=== PATIENT | female | born 1955 | race Caucasian/White ===

== ENCOUNTER 2020-05-22 10:38 | Outpatient (CLI) | payer MEDICARE, SELFPAY ==
--- NOTE | ~2020-05-22 | MM_ITS ---
EXAMINATION: MM screening [facility] BI w brandon HISTORY: Screening TECHNIQUE: Craniocaudal and mediolateral oblique 3-D tomosynthesis images were obtained and synthetic 2-D images were generated. CAD analysis was submitted and interpreted. COMPARISON: Comparison to multiple prior studies sequentially, with oldest reviewed study dated 03/2016. BREAST PARENCHYMAL COMPOSITION: There are scattered areas of fibroglandular density. FINDINGS: There post lumpectomy changes in the left breast, unchanged. There is no evidence of suspic ious mass, calcification, or architectural distortion to suggest malignancy in either breast. There h as been no suspicious interval change. IMPRESSION: 1. No mammographic evidence of malignancy. 2. Recommend routine screening mammography in one year. BI-RADS Category 2: Benign finding(s). Reviewed, dictated and finalized at location A.
== END 2020-05-22 10:39 | disposition home or self-care (01) ==
LOC: ANHIMG 10:45
PROVIDERS: PCP Obstetrics & Gynecology; Visit Provider Nurse Practitioner Women's Health
DX: Z12.31 Encounter for screening mammogram for malignant neoplasm of breast (principal)
CPT/HCPCS: 77063; 77067

== ENCOUNTER 2020-09-02 09:46 | Emergency (ER) | payer MEDICARE, SELFPAY ==
--- NOTE | ~2020-09-02 | XR_ITS ---
EXAMINATION: XR chest 2V DATE: 09/02/2020 10:18 INDICATION: Cough TECHNIQUE: PA and lateral views of the chest are obtained. COMPARISON: None available FINDINGS: The lungs are free of acute opacities. There is no pleural effusion or pneumothorax. The ca rdiomediastinal silhouette is normal. There is moderate thoracic spondylosis. A surgical clip in the left axilla is consistent with treatment for prior left breast cancer. IMPRESSION: 1. No acute cardiopulmonary abnormality. Reviewed, dictated and finalized at location A. SPORT INSTRUCTOR
[2020-09-02 10:09] VITALS: BP 165/77; PULSE 69; RESP 14; TEMP 36.6; O2SAT 100
--- NOTE | 2020-09-02 10:23 | ED.GENADULT ---
HPI - General Adult General Chief complaint: Upper Respiratory Infection Stated complaint: chills cough fatigue Source: patient Mode of arrival: ambulatory Limitations: no limitations History of Present Illness HPI narrative: Patient presents with concerns about recent exposure. She states her daughter and grandchildren tested positive for Covid three days ago. She was last in contact with them two days prior to their positive Covid tests. She experienced chills, headache, diarrhea. All symptoms have resolved as of today. She currently has a mild sore throat and nonproductive cough but denies any shortness of breath, chest pain, fever, body aches. She does not smoke. No additional complaints or concerns. Related Data Allergies Allergy/AdvReac Type Severity Reaction Status Date / Time No Known Allergies Allergy Verified 09/02/20 09:54 Review of Systems Review of Systems: Narrative: CONSTITUTIONAL: Reports recent chills, now resolved. Denies any fever or sweating. EYES: Denies visual changes, redness, or discharge. ENT: Reports sore throat. Denies rhinorrhea, congestion, or otalgia. CARDIOVASCULAR: Denies chest pain, palpitations, or edema. RESPIRATORY: Reports mild nonproductive cough. Denies shortness of breath GASTROINTESTINAL: Reports diarrhea yesterday, now resolved. Denies abdominal pain, nausea, vomiting GENITOURINARY: Denies dysuria or hematuria. SKIN: Denies rash or itching. MUSCULOSKELETAL: Denies back pain, joint pain, or myalgia. NEUROLOGIC: Reports recent headache, now resolved. Denies numbness, dizziness, or weakness. PSYCHIATRIC: Denies anxiety or depression. [facility] Past Medical History Medical History History of left breast cancer Hypothyroidism (acquired) Surgical History Surgical History History of lumpectomy of left breast Status post right hip replacement Family History Family History Father Patient's father is Heart disease Lung cancer Sibling Patient's sister is in good health Patient's brother is in good health Mother Cerebrovascular accident, Onset Age: 80 Hypertension Social History Social History Social History: Smoking status: Never smoker Second hand tobacco smoke exposure: No Alcohol intake: never Substance use: never Substance use type: does not use Gender identity (if verbalized by the patient): Female Exam Narrative: Exam Narrative: GENERAL: Well-appearing, well-nourished, and in no acute distress. HEAD: Normocephalic, atraumatic. EYES: PERRLA and EOMI. ENT: Nares clear, no rhinorrhea or epistaxis. Mucous membranes moist. Oropharynx without tonsillar hypertrophy exudate or other lesions. Bilateral TMs pearly graham nonbulging NECK: Supple. No adenopathy or masses. No carotid bruits or JVD CHEST: Clear to auscultation. No respiratory distress. No wheezes rales or rhonchi HEART: Regular rate and rhythm. No murmur heard. Normal peripheral pulses. ABDOMEN: Soft, nontender, nondistended, normal active bowel sounds. EXTREMITIES: Normal range of motion. No edema. SKIN: Warm, dry, no rash. NEURO: No focal deficits. Alert and oriented x3. PSYCH: Normal mood and affect. Course Course Emergency Course: This is a 64-year-old female that presents with recent exposure to Covid. Rapid Covid was negative. Chest x-ray was negative. I ordered strep and influenza, which she declined. Her saturations are 100% on room air and she is nontoxic-appearing. Likely acute viral syndrome. Will send PCR Covid testing. Advised to go to the hospital for shortness of breath or any declining condition. Otherwise follow-up this week with primary care provider. Patient does have elevated blood pr
[2020-09-03 18:27] LABS: SARS-CoV-2 RNA PCR Positive
== END 2020-09-02 10:45 | disposition home or self-care (01) ==
PROVIDERS: Emergency Provider Nurse Practitioner; PCP Family Medicine
DX: B34.9 Viral infection, unspecified (principal); R03.0 Elevated blood-pressure reading, without diagnosis of hypertension; U07.1 COVID-19; E03.9 Hypothyroidism, unspecified; Z85.3 Personal history of malignant neoplasm of breast; Z96.641 Presence of right artificial hip joint
CPT/HCPCS: 71046; 87426; 99213; C9803; G0463; U0003; U0005

== ENCOUNTER 2021-06-04 09:43 | Outpatient (CLI) | payer MEDICARE, SELFPAY ==
--- NOTE | ~2021-06-04 | MM_ITS ---
EXAMINATION: MM screening [facility] w brandon HISTORY: Screening mammogram TECHNIQUE: Craniocaudal and mediolateral oblique 3-D tomosynthesis images were obtained and synthetic 2-D images were generated. CAD analysis was submitted and interpreted. COMPARISON: 05/22/2020, 05/16/2019, 05/10/2018 bilateral digital screening mammogram examinations BREAST PARENCHYMAL COMPOSITION: The breasts are heterogeneously dense, which may obscure small masses . FINDINGS: Stable asymmetry in volume loss of the left breast consistent with history of left partial mastectomy for breast cancer. Scattered bilateral benign calcifications. There is no evidence of suspicious mass, calcification, or architectural distortion to suggest malignancy in either breast. There has been no suspicious interv al change. IMPRESSION: 1. Status post left partial mastectomy for breast cancer. No mammographic evidence of malignancy. 2. Recommend routine screening mammography in one year. BI-RADS Category 2: Benign finding(s). Reviewed, dictated and finalized at location A. IMPRESSION: 1. Status post left partial mastectomy for breast cancer. No mammographic evide nce of malignancy. 2. Recommend routine screening mammography in one year. BI-RADS Category 2: Benign finding(s).
== END 2021-06-04 09:44 | disposition home or self-care (01) ==
LOC: ANHIMG 09:47
PROVIDERS: PCP Family Medicine; Visit Provider Nurse Practitioner Women's Health
DX: Z12.31 Encounter for screening mammogram for malignant neoplasm of breast (principal)
CPT/HCPCS: 77063; 77067

== ENCOUNTER 2021-10-17 01:19 | Day surgery (SDC) | payer MEDICARE, SELFPAY ==
[2021-10-10 09:36] VITALS: BMI 24.0
--- NOTE | 2021-10-16 11:57 | P.PNAN_ITS ---
Anes - Initial Pre Proc Eval Procedure: Operation Date: 10/17/21 08:30 Proposed Procedures p Esophagogastroduodenoscopy & Screening Colonoscopy - Guilherme Lui MD Date/Time: 10/16/21 11:57 Surgeon: Guilherme Lui MD Pre Op Diagnosis: neoplasm screening, GERD, nausea Patient Data Age: 66 Gender: F Height: 1.63 m Weight: 63.5 kg Allergies Allergy/AdvReac Type Severity Reaction Status Date / Time No Known Allergies Allergy Verified 10/17/21 07:41 Home Medications Medication Instructions Recorded Confirmed Type cholecalciferol (vitamin D3) 25 25 mcg PO DAILY 06/24/21 10/17/21 History mcg (1,000 unit) capsule multivitamin 1 tablet PO DAILY 06/24/21 10/17/21 History calcium citrate-vitamin D3 1 cap PO DAILY 10/10/21 10/17/21 History levothyroxine [Euthyrox] 75 mcg PO DAILY 10/10/21 10/17/21 History Patient hx anesthesia problems: none Family hx anesthesia problems: none Results Review: All pre-operative results and documents have been reviewed as part of the pre-operative evaluation. [facility] Past Medical History Medical History (Updated 06/24/21 @ 14:09 by Homa Russ, KAREN) History of left breast cancer Hypothyroidism (acquired) Postmenopausal Surgical History Surgical History History of lumpectomy of left breast Status post right hip replacement Family History Family History Father Patient's father is Heart disease Lung cancer Sibling Patient's sister is in good health Patient's brother is in good health Mother Cerebrovascular accident, Onset Age: 80 Hypertension Social History Social History (Updated 06/24/21 @ 13:25 by Lorna Calderon) Social History: Smoking status: Never smoker Second hand tobacco smoke exposure: No Alcohol intake: never Substance use: never Substance use type: does not use Living arrangements: with family Gender identity (if verbalized by the patient): Female Sexual Orientation (if Verbalized by the Patient): Straight or Heterosexual Spiritual care concerns: No Anes - Eval Final PreProcedure Day of Procedure 10/16/21 11:57 Patient weight: normal Heart: regular rate and rhythm Lungs: clear to auscultation and normal air movement Airway: Mallampati scale class II Neurological: alert and oriented Last oral intake: >/= 8 hours ASA classification: II Emergent: no Anesthetic plan: proceed Anesthesia type and monitoring: general GIVS and standard monitoring Results Review: All pre-operative results and documents have been reviewed as part of the pre-operative evaluation. Informed Consent: The patient's anesthetic plan and its attendant risks and benefits were discussed with the patient/family/POA. Questions were solicited and answers provided to the satisfaction of the patient/family/POA.
[2021-10-17 07:30] VITALS: BP 136/80; PULSE 88; RESP 18; TEMP 37.4; O2SAT 100; BMI 24.2
[2021-10-17] MEDS: LACTATED RINGERS 1,000 ML 150 ML IV CONT (07:57)
--- NOTE | 2021-10-17 08:15 | WPDGICN ---
Assessment and Plan Assessment and plan (1) Nausea & vomiting: Code(s): R11.2 - Nausea with vomiting, unspecified Status: Acute Assessment and Plan: Patient with episode of prolonged nausea vomiting. Distant history of peptic ulcer disease. Currently asymptomatic. Plan is for EGD to assess and exclude recurrent ulcers. Further recommendations may be given after endoscopy. Suspect she may have had a viral episode and fall. (2) Encounter for screening colonoscopy: Code(s): Z12.11 - Encounter for screening for malignant neoplasm of colon Status: Acute Assessment and Plan: Screening colonoscopy advised. Patient appears to be at average risk for colon polyps. GI Consult Note Consult date/time: 10/17/21 08:15 HPI: Waldo Ham is a 66 year old female Presents for GI endoscopy. She states her weight appetite bowel movements are normal. She presents for screening colonoscopy. She has no pain. No bleeding. Family history is noncontributory. Patient reports a distant history of gastric ulcerations presumed to be from nonsteroidal anti-inflammatory agents. In the fall of 2020 had a prolonged episode of vomiting for this reason EGD is requested. She states she no longer has epigastric pain takes no specific medications. She states intermittently will have vague upper abdominal discomfort that resolved spontaneously after a few antacids. She has no dysphagia no weight loss. EGD is requested by primary care service. Because of a prolonged vomiting episode. Review of Systems Review of Systems: All systems reviewed & are unremarkable except as noted in HPI and below PMFSH Past Medical History Medical History (Updated 10/17/21 @ 08:16 by Guilherme Lui MD) History of left breast cancer Hypothyroidism (acquired) Postmenopausal Surgical History Surgical History History of lumpectomy of left breast Status post right hip replacement Family History Family History Father Patient's father is Heart disease Lung cancer Sibling Patient's sister is in good health Patient's brother is in good health Mother Cerebrovascular accident, Onset Age: 80 Hypertension Social History Social History (Updated 06/24/21 @ 13:25 by Lorna Calderon) Social History: Smoking status: Never smoker Second hand tobacco smoke exposure: No Alcohol intake: never Substance use: never Substance use type: does not use Living arrangements: with family Gender identity (if verbalized by the patient): Female Sexual Orientation (if Verbalized by the Patient): Straight or Heterosexual Spiritual care concerns: No Meds Home Medications and Allergies Home Medications Medication Instructions Recorded Confirmed Type cholecalciferol (vitamin D3) 25 25 mcg PO DAILY 06/24/21 10/17/21 History mcg (1,000 unit) capsule multivitamin 1 tablet PO DAILY 06/24/21 10/17/21 History calcium citrate-vitamin D3 1 cap PO DAILY 10/10/21 10/17/21 History levothyroxine [Euthyrox] 75 mcg PO DAILY 10/10/21 10/17/21 History Allergies Allergy/AdvReac Type Severity Reaction Status Date / Time No Known Allergies Allergy Verified 10/17/21 07:41 Vital Signs Vital Signs - 24 hr 10/17/21 07:30 Temperature 99.4 F Pulse Rate 88 Respiratory Rate 18 Blood Pressure 136/80 Pulse Oximetry 100 Exam Narrative: Physical exam reveals patient to be alert. Vital signs stable. HEENT exam is unremarkable. Patient is anicteric. Lungs are clear to auscultation and percussion. Heart is without murmur or extra sounds. Abdominal exam bowel sounds are present soft nontender with no organomegaly. Digital external rectal exam is normal.
[2021-10-17] MEDS: BENZOCAINE (*SP) 60 ML SPRAY CAN (HURRICAINE) 1 SPRAY MUCOUS MEM (08:34)
--- NOTE | 2021-10-17 08:59 | SUR.OPER ---
EGD start 835 end 837, COLON start 842 end 857.
[2021-10-17 09:05] VITALS: BP 105/59; PULSE 79; RESP 23; O2SAT 99
[2021-10-17 09:15] VITALS: BP 115/71; PULSE 67; RESP 25; O2SAT 100
[2021-10-17 09:25] VITALS: BP 137/72; PULSE 62; RESP 21; O2SAT 100
== END 2021-10-17 09:34 | disposition home or self-care (01) ==
PROVIDERS: PCP Family Medicine; Visit Provider Internal Medicine Gastroenterology
PROC: 0DJ08ZZ Inspection of Upper Intestinal Tract, Via Natural or Artificial Opening Endoscopic (ICD-10-PCS; CPT 43235; principal; 2021-10-17 08:30)
DX: Z12.11 Encounter for screening for malignant neoplasm of colon (principal); R11.2 Nausea with vomiting, unspecified; E03.9 Hypothyroidism, unspecified; Z85.3 Personal history of malignant neoplasm of breast
CPT/HCPCS: 43239; G0121; 87081; J2704; J7120

== ENCOUNTER 2021-11-25 12:58 | Outpatient (CLI) | payer MEDICARE, SELFPAY ==
--- NOTE | ~2021-11-25 | DEXA_ITS ---
Bone Density Report Name: AMY DIAZ Age: 66 Sex: Female Ethnicity: White Date of : 1955 Indication: postmenopausal; screening for osteoporosis; cancer; Referring Provider: MEHDI, MYRON Holm Study: Bone densitometry was performed. Exam Date: November 25, 2021 Accession number: [id number] Bone Density: Region BMD T-score Z-score Classification AP Spine(L1-L4) 1.061 0.1 2.1 Normal Femoral Neck (Left) 0.893 0.4 2.1 Normal Total Hip (Left) 0.932 -0.1 1.3 Normal World Health Organization criteria for BMD impression classify patients as: Normal (T-score at or above -1.0), Osteopenia (T-score between -1.0 and -2.5), or Osteoporosis (T-score at or below -2.5). 10-year Fracture Risk: FRAX not reported because: All T-scores for Spine Total, Hip Total, Femoral Neck at or above -1.0 Previous Exams: Region Exam Age BMD T-score BMD Change BMD Change Date g/cm2 vs Baseline vs Previous AP Spine(L1-L4) 11/25/2021 66 1.061 0.1 0.024(2.3%)* 0.024(2.3%)* 05/10/2018 62 1.037 -0.1 Total Hip(Left) 11/25/2021 66 0.932 -0.1 0.027(3.0%) 0.027(3.0%) 05/10/2018 62 0.905 -0.3 *Denotes significance at 95% confidence level, LSC for AP Spine = 0.022 g/cm2, LSC for Total Hip = 0.027 g/cm2 Clinical Information Provided by Patient: Has used the following medications: Vitamin D Has the following medical conditions: Cancer Patient maximum height was 64 Menopause Age: 46 Drinks caffeinated beverages Onset of menses at age 12 Number of children 3 Impression: The patient has normal bone mass. No significant bone loss was observed. Discussion: BONE DENSITY IS ABOVE THE MINIMUM DESIRABLE LEVEL AT ALL SKELETAL SITES TESTED. This patient?s bone mineral density is above the minimum desirable level (T-score -1.0 or better) at all sites measured. The patient should follow a healthful lifestyle (good nutrition with adequate calcium and vitamin D, and appropriate weight-bearing exercise). Follow-Up: Consider repeating this study in 5 years or sooner if there is some new clinical indication. Reported by: MAHESH on 11/25/2021 4:25:00 PM. Reviewed, dictated and finalized at location Nallely RAMIREZ
== END 2021-11-25 12:59 | disposition home or self-care (01) ==
LOC: ANHIMG 13:04
PROVIDERS: PCP Family Medicine
DX: Z78.0 Asymptomatic menopausal state (principal)
CPT/HCPCS: 77080

== ENCOUNTER 2022-07-29 10:44 | Outpatient (CLI) | payer MEDICARE, SELFPAY ==
--- NOTE | ~2022-07-29 | MM_ITS ---
EXAMINATION: MM screening [facility] BI w brandon HISTORY: Screening TECHNIQUE: Craniocaudal and mediolateral oblique 3-D tomosynthesis images were obtained and synthetic 2-D images were generated. CAD analysis was submitted and interpreted. COMPARISON: Comparison to multiple prior studies sequentially, with oldest reviewed study dated 03/2016. BREAST PARENCHYMAL COMPOSITION: Breast composed of scattered areas of fibroglandular density FINDINGS: There is no evidence of suspicious mass, calcification, or architectural distortion to sugg est malignancy in either breast. There has been no suspicious interval change. IMPRESSION: 1. No mammographic evidence of malignancy. 2. Recommend routine screening mammography in one year. BI-RADS Category 1: Negative Reviewed, dictated and finalized at location A. N CLEANER
== END 2022-07-29 10:45 | disposition home or self-care (01) ==
PROVIDERS: PCP Family Medicine; Visit Provider Nurse Practitioner Women's Health
DX: Z12.31 Encounter for screening mammogram for malignant neoplasm of breast (principal)
CPT/HCPCS: 77063; 77067

== ENCOUNTER 2022-08-04 09:10 | Emergency (ER) | payer MEDICARE, SELFPAY ==
--- NOTE | ~2022-08-04 | XR_ITS ---
EXAMINATION: XR chest 2V DATE: 08/04/2022 10:44 INDICATION: 5 days of cough, shortness of breath and left-sided lung pain TECHNIQUE: frontal and lateral views of the chest were obtained. COMPARISON: Chest radiograph dated 09/02/2020 FINDINGS: New focal airspace opacity in the lingula along side the apex of the heart. No other airspace opaciti es, pulmonary edema, pleural effusion or pneumothorax. The cardiomediastinal silhouette is normal. Mi ld thoracic kyphosis with moderate spondylosis and chronic minimal anterior wedging of a few mid thor acic vertebral bodies. IMPRESSION: 1. New focal small lingular airspace opacity which could represent atelectasis or pneumonia. Reviewed, dictated and finalized at location A. SYSTEM ADMINISTRATOR
[2022-08-04 09:16] VITALS: BP 131/60; PULSE 94; RESP 16; TEMP 36.6; O2SAT 97
--- NOTE | 2022-08-04 10:29 | ED.URI ---
HPI - URI/Sore Throat General Chief Complaint: Upper Respiratory Infection Stated Complaint: left lung burning Source: patient, RN notes reviewed and old records reviewed Mode of arrival: ambulatory Limitations: no limitations History of Present Illness HPI Narrative: 66-year-old female presents to [facility] with complaints of 5 day duration cough 3 days of nasal congestion and also low-grade fever with some chills, Patient states her left lung hurts feels burning denies shortness breath with cough, does feel increase discomfort with cough, movement and deep breathing. MD elicited complaint: cough, rhinorrhea, nasal congestion and other (left chest discomfort with cough and movement) Pertinent past history: other (breast cancer left lumpectomy chemo and radiation) Onset (ago): day(s) (5) Pain scale (0-10): 5 Able to tolerate fluids by mouth: Yes Treatments prior to arrival: acetaminophen, ibuprofen and other (robitussin cough syrup) Related Data Home Medications Medication Instructions Recorded Confirmed cholecalciferol (vitamin D3) 25 25 mcg PO DAILY 06/24/21 10/17/21 mcg (1,000 unit) capsule multivitamin 1 tablet PO DAILY 06/24/21 10/17/21 calcium citrate-vitamin D3 1 cap PO DAILY 10/10/21 10/17/21 Allergies Allergy/AdvReac Type Severity Reaction Status Date / Time No Known Allergies Allergy Verified 02/04/22 10:48 Review of Systems Review of Systems: CONSTITUTIONAL: Reports malaise, chills, sweats, or fever. EYES: Denies visual changes, redness, or discharge. ENT: Reports rhinorrhea, congestion, sinus pain, no otalgia and sore throat. CARDIOVASCULAR: left chest discomfort with cough movement and deep breathing,no palpitations, or edema. RESPIRATORY: Reports cough.? Denies dyspnea. GASTROINTESTINAL: Denies abdominal pain, nausea, vomiting, diarrhea SKIN: Denies rash or itching. MUSCULOSKELETAL: Denies myalgia. NEUROLOGIC: Denies headache. All systems reviewed & are unremarkable except as noted in HPI and below PMFSH Past Medical History Medical History History of left breast cancer left lumpectomy chemotherapy and radiation Hypothyroidism (acquired) Postmenopausal Surgical History Surgical History History of lumpectomy of left breast Status post right hip replacement Family History Family History Father Patient's father is Heart disease Lung cancer Sibling Patient's sister is in good health Patient's brother is in good health Mother Cerebrovascular accident, Onset Age: 80 Hypertension Social History Social History Social History: Smoking status: Never smoker Second hand tobacco smoke exposure: No Alcohol intake: never Substance use: never Substance use type: does not use Gender identity (if verbalized by the patient): Female Sexual Orientation (if Verbalized by the Patient): Straight or Heterosexual Spiritual care concerns: No Comments At time of signature, agree with nursing past medical, surgical, social and family history. There is no relevant family history pertinent to the presenting complaint Exam Narrative: GENERAL: Well-appearing, well-nourished, and in no acute distress. HEAD: Normocephalic EYES: PERRLA, conjunctivae clear ENT: Nares clear, turbinates edematous and erythematous, clear discharge. Mucous membranes moist. TM pearly grhaam with dull light reflex bilaterally; no tragal tenderness. Oropharynx erythematous without lesions. Tonsils not enlarged and without exudate, no drooling, no hoarseness, no trismus, uvula midline.some post nasal drainage NECK: Supple. No lymphadenopathy CHEST: Clear to auscultation with some upper left lung coarseness noted, breath sounds equal. No
== END 2022-08-04 12:06 | disposition home or self-care (01) ==
PROVIDERS: Emergency Provider Registered Nurse; PCP Family Medicine
DX: J18.1 Lobar pneumonia, unspecified organism (principal); E03.9 Hypothyroidism, unspecified; Z85.3 Personal history of malignant neoplasm of breast; Z96.641 Presence of right artificial hip joint
CPT/HCPCS: 71046; 99213; G0463

== ENCOUNTER 2023-05-03 10:16 | Emergency (ER) | payer MEDICARE, SELFPAY ==
[2023-05-03 10:20] VITALS: BP 143/73; PULSE 77; RESP 20; TEMP 37.4; O2SAT 97
--- NOTE | 2023-05-03 10:32 | ED.URI ---
HPI - URI/Sore Throat General Chief Complaint: Upper Respiratory Infection Stated Complaint: cough History of Present Illness HPI Narrative: PATIENT PRESENTS WITH A 2 WEEK HISTORY OF A COUGH. NO SHORTNESS OF BREATH NO CHEST PAIN. PATIENT STATES HER COUGH IS PRODUCTIVE AT TIMES NO FEVERS. PATIENT IS NOT TAKING ANYTHING [id number] FOR HER SYMPTOMS AND STATES SHE HAS A NORMALLY HEALTHY INDIVIDUAL WITH GOOD P.O. INTAKE Related Data Home Medications Medication Instructions Recorded Confirmed cholecalciferol (vitamin D3) 25 25 mcg PO DAILY 06/24/21 12/11/22 mcg (1,000 unit) capsule multivitamin 1 tablet PO DAILY 06/24/21 12/11/22 calcium citrate-vitamin D3 1 cap PO DAILY 10/10/21 12/11/22 Allergies Allergy/AdvReac Type Severity Reaction Status Date / Time No Known Allergies Allergy Verified 12/11/22 10:43 Review of Systems Review of Systems: CONSTITUTIONAL: DENIES CHILLS, OR SWEATS. REPORTS FEVER AND GENERALIZED BODY ACHES EYES: DENIES VISUAL CHANGES, REDNESS, OR DISCHARGE. ENT: DENIES OTALGIA. REPORTS NASAL CONGESTION RUNNY NOSE AND SORE THROAT CARDIOVASCULAR: DENIES CHEST PAIN, PALPITATIONS, OR EDEMA. RESPIRATORY: DENIES DYSPNEA. REPORTS OCCASIONAL COUGH GASTROINTESTINAL: DENIES ABDOMINAL PAIN, NAUSEA, VOMITING, OR DIARRHEA. GENITOURINARY: DENIES DYSURIA OR HEMATURIA. SKIN: DENIES RASH OR ITCHING. MUSCULOSKELETAL: DENIES BACK PAIN, JOINT PAIN, OR MYALGIA. REPORTS GENERALIZED BODY ACHES NEUROLOGIC: DENIES HEADACHE, NUMBNESS, OR WEAKNESS. PSYCHIATRIC: DENIES ANXIETY OR DEPRESSION. [facility] Past Medical History Medical History History of left breast cancer left lumpectomy chemotherapy and radiation Hypothyroidism (acquired) Postmenopausal Surgical History Surgical History History of lumpectomy of left breast Status post right hip replacement Family History Family History Father Patient's father is Heart disease Lung cancer Sibling Patient's sister is in good health Patient's brother is in good health Mother Cerebrovascular accident, Onset Age: 80 Hypertension Social History Social History (Updated 12/11/22 @ 10:44 by Lorna Rivero Social History: Smoking status: Never smoker Second hand tobacco smoke exposure: No Alcohol intake: never Substance use: never Substance use type: does not use Lack of Transportation: No Lack of Food: Never True Current Housing: I Have Housing Concerned About Future Housing: No Difficulty Paying Gas/Electric Bills: No Difficulty Paying for Meds: No Currently Unemployed: YES Education: Decline to Answer Difficulty w/ Childcare or Family Care: No Living arrangements: with family Occupation/Education: retired Gender identity (if verbalized by the patient): Female Sexual Orientation (if Verbalized by the Patient): Straight or Heterosexual Spiritual care concerns: No Comments AT TIME OF SIGNATURE, AGREE WITH NURSING PAST MEDICAL, SURGICAL, SOCIAL AND FAMILY HISTORY. THERE IS NO RELEVANT FAMILY HISTORY PERTINENT TO THE PRESENTING COMPLAINT Exam Narrative: THE PATIENT IS A WELL-DEVELOPED, WELL-NOURISHED IN NO ACUTE DISTRESS. SKIN: SKIN IS WARM AND DRY WITHOUT ERYTHEMA, SWELLING OR EXUDATE. THERE IS GOOD TURGOR. NO TENTING. HEAD: ATRAUMATIC. NORMOCEPHALIC. NO TEMPORAL OR SCALP TENDERNESS. EYES: MOIST AND BRIGHT. SCLERA AND CONJUNCTIVAE NORMAL. NO DISCHARGE. PERRLA. EXTRAOCULAR MOTIONS INTACT. GROSS VISUAL ACUITY INTACT. EARS: PINNA IS NORMAL SHAPE AND CONTOUR. CLEAR EXTERNAL AUDITORY CANALS. TM PEARLY CASIANO WITH GOOD CONE OF LIGHT, NO ERYTHEMA OR SUPPURATION. BILATERAL CERUMEN NOTED NO GROSS HEARING DEFICIT. NOSE: PINK, MOIST MUCOSA WITH GOOD AIR MOVEMENT. CLEAR RHINORRHEA WITHOUT NASAL FLARING. SEPTUM MIDLINE. MOUT
== END 2023-05-03 10:41 | disposition home or self-care (01) ==
PROVIDERS: Emergency Provider Nurse Practitioner Family; PCP Family Medicine
DX: J06.9 Acute upper respiratory infection, unspecified (principal); J40 Bronchitis, not specified as acute or chronic; E03.9 Hypothyroidism, unspecified; Z85.3 Personal history of malignant neoplasm of breast; Z90.12 Acquired absence of left breast and nipple; Z96.641 Presence of right artificial hip joint
CPT/HCPCS: 99213; G0463

== ENCOUNTER 2023-10-19 13:45 | Outpatient (CLI) | payer MEDICARE, SELFPAY ==
--- NOTE | ~2023-10-19 | MM_ITS ---
EXAMINATION: MM screening della BI w brandon HISTORY: Screening mammogram TECHNIQUE: Craniocaudal and mediolateral oblique 3-D tomosynthesis images were obtained and synthetic 2-D images were generated. CAD analysis was submitted and interpreted. COMPARISON: 07/29/2022, 06/04/2021, 05/22/2020 bilateral screening mammogram examinations BREAST PARENCHYMAL COMPOSITION: The breasts are heterogeneously dense, which may obscure small masses . FINDINGS: There are multiple scattered bilateral benign calcifications. There is no evidence of suspi cious mass, calcification, or architectural distortion to suggest malignancy in either breast. There has been no suspicious interval change. IMPRESSION: 1. No mammographic evidence of malignancy. 2. Recommend routine screening mammography in one year. BI-RADS Category 2: Benign finding(s). Reviewed, dictated and finalized at location A.
== END 2023-10-19 13:46 | disposition home or self-care (01) ==
LOC: ANHIMG 13:48
PROVIDERS: PCP Family Medicine; Visit Provider Nurse Practitioner Women's Health
DX: Z12.31 Encounter for screening mammogram for malignant neoplasm of breast (principal)
CPT/HCPCS: 77063; 77067

== ENCOUNTER 2024-03-29 14:01 | Outpatient (CLI) | payer MEDICARE, SELFPAY ==
--- NOTE | ~2024-03-29 | XR_ITS ---
3 VIEWS LUMBAR SPINE Ordering provider: Eryn Clark MD History: . M54.10 - Radiculopathy, site unspecified PAIN S1 X 1 MONTH . Comparison: None. FINDINGS: VERTEBRAL BODIES: No visible fracture or subluxation. Degenerative changes of the spine. DISK SPACES: Narrowing of the disc L4-L5 and L5-S1. Multilevel facet joint disease. SOFT TISSUES: Normal. Right hip arthroplasty. Left sacroiliitis. IMPRESSION: No acute osseous abnormality lumbar spine. Multilevel degenerative disc disease. Left sacroiliitis. Reviewed, dictated and finalized at location A.
== END 2024-03-29 14:02 | disposition home or self-care (01) ==
PROVIDERS: PCP Family Medicine; Visit Provider Family Medicine
DX: N20.1 Calculus of ureter (principal); M53.3 Sacrococcygeal disorders, not elsewhere classified; M51.36 Other intervertebral disc degeneration, lumbar region
CPT/HCPCS: 72110

== ENCOUNTER 2024-05-20 10:30 | Outpatient (CLI) | payer MEDICARE, SELFPAY ==
--- NOTE | ~2024-05-20 | XR_ITS ---
CHEST RADIOGRAPH, PA AND LATERAL CLINICAL HISTORY: R06.09 - Other forms of dyspnea, fever, cough, HTN . COMPARISON: 08/04/2022 TECHNIQUE: PA and lateral views of the chest. FINDINGS The cardiomediastinal silhouette is unremarkable. The lungs are clear. Visualized osseous structures and soft tissues are unremarkable. IMPRESSION: No focal infiltrate or effusion. Reviewed, dictated and finalized at location A.
== END 2024-05-20 10:31 | disposition home or self-care (01) ==
LOC: ANHIMG 10:33
PROVIDERS: PCP Family Medicine; Visit Provider Student in an Organized Health Care Education/Training Program
DX: R06.09 Other forms of dyspnea (principal)
CPT/HCPCS: 71046

== ENCOUNTER 2024-06-09 09:33 | Outpatient (CLI) | payer MEDICARE, SELFPAY ==
--- NOTE | 2024-06-09 09:39 | EST_ITS ---
Patient Info Name: Waldo Ham Age: 68 years : 1955 Gender: Female Ht: 64 in Wt: 145 lbs BSA: 1.73 m2 HR: 72 bpm BP: 142 / 82 mmHg Exam Date: 06/09/2024 9:58 AM Exam Location: [facility] Lab Patient Status: Outpatient Admit Date: 06/09/2024 Staff Ordering Physician: Alexa Sahu PA-C Attending Provider: Alexa Sahu PA-C Exercise Technologist: Lyndsey Loredo RDCS Exercise Physician: Kendall Crawford DO Exam Type: CA stress test treadmill Study Info A treadmill exercise stress test was performed. Summary 1. 1. Negative Arian exercise stress test for ischemic ST changes by ECG criteria. 2. 2. Good functional capacity, achieving 6.5 METs of workload. 3. 3. Baseline hypertension. 4. 4. Appropriate HR response to exercise. 5. 5. Appropriate HR recovery at 1 minute post exercise. 6. 6. No imaging with stress testing. 7. 7. Patient informed of the above results. Protocol: Arian Stress ECG Details Stage: REST Duration (min): 5 min : 58 sec Speed (mph): 0.0 Grade (%): 0 HR (bpm): 63 SBP (mmHg): 142 DBP (mmHg): 82 METS: --- Stage: REST Duration (min): 20 min : 21 sec Speed (mph): 0.0 Grade (%): 0 HR (bpm): 81 SBP (mmHg): 142 DBP (mmHg): 82 METS: --- Stage: STAGE 1 Duration (min): 1 min : 0 sec Speed (mph): 1.7 Grade (%): 10 HR (bpm): 111 SBP (mmHg): 142 DBP (mmHg): 82 METS: --- Stage: STAGE 1 Duration (min): 2 min : 0 sec Speed (mph): 1.7 Grade (%): 10 HR (bpm): 127 SBP (mmHg): 142 DBP (mmHg): 82 METS: --- Stage: STAGE 1 Duration (min): 3 min : 0 sec Speed (mph): 1.7 Grade (%): 10 HR (bpm): 134 SBP (mmHg): 180 DBP (mmHg): 71 METS: --- Stage: STAGE 2 Duration (min): 1 min : 0 sec Speed (mph): 2.5 Grade (%): 12 HR (bpm): 132 SBP (mmHg): 180 DBP (mmHg): 71 METS: --- Stage: STAGE 2 Duration (min): 1 min : 0 sec Speed (mph): 2.5 Grade (%): 12 HR (bpm): 132 SBP (mmHg): 180 DBP (mmHg): 71 METS: --- Stage: RECOVERY Duration (min): 0 min : 59 sec Speed (mph): 0.0 Grade (%): 0 HR (bpm): 104 SBP (mmHg): 170 DBP (mmHg): 79 METS: --- Stage: RECOVERY Duration (min): 1 min : 59 sec Speed (mph): 0.0 Grade (%): 0 HR (bpm): 87 SBP (mmHg): 170 DBP (mmHg): 79 METS: --- Stage: RECOVERY Duration (min): 2 min : 59 sec Speed (mph): 0.0 Grade (%): 0 HR (bpm): 75 SBP (mmHg): 150 DBP (mmHg): 83 METS: --- Stage: RECOVERY Duration (min): 3 min : 4 sec Speed (mph): 0.0 Grade (%): 0 HR (bpm): 76 SBP (mmHg): 150 DBP (mmHg): 83 METS: --- Rest HR: 81 bpm Peak HR: 137 bpm Rest Sys BP: 142 mmHg Peak Sys BP: 180 mmHg Max Pred HR: 150 bpm % Max Pred HR: 91 % Target HR: 128 bpm Max RPP: 24,660 bpm*mmHg Joya Score: 1 Termination Reason: Reached target heart rate or workload Cardiac Symptoms: Shortness of breath Max ST Seg Deviation: 0.70 mm Total Time: 4 min : 0 sec Rest Baumann BP: 82 mmHg Peak Baumann BP: 71 mmHg Angina Score: None Total METS: 6.5 Resting ECG Sinus rhythm. Stress ECG No ST changes. Arrhythmias None. Report Signatures
== END 2024-06-09 09:34 | disposition home or self-care (01) ==
LOC: ANHCARD 09:33
PROVIDERS: PCP Family Medicine; Visit Provider Student in an Organized Health Care Education/Training Program
DX: R06.09 Other forms of dyspnea (principal)
CPT/HCPCS: 93017

== ENCOUNTER 2024-11-07 13:50 | Outpatient (CLI) | payer MEDICARE, SELFPAY ==
--- NOTE | ~2024-11-07 | MM_ITS ---
EXAMINATION: MM screening [facility] BI w brandon HISTORY: Screening mammogram TECHNIQUE: Craniocaudal and mediolateral oblique 3-D tomosynthesis images were obtained and synthetic 2-D images were generated. CAD analysis was submitted and interpreted. COMPARISON: 10/19/2023, 07/29/2022, 06/04/2021 BREAST PARENCHYMAL COMPOSITION:Not Dense. There are scattered areas of fibroglandular density. FINDINGS: No suspicious mass, calcification, or architectural distortion are identified in either bobbi ast to suggest malignancy. There has been no suspicious interval change. IMPRESSION: No mammographic evidence of malignancy. Recommend routine screening mammography in one year. BI-RADS Category 1: Negative Reviewed, dictated and finalized at location .
--- OUTSIDE RECORDS SUMMARY | 2024-11-07 15:15 | XMS_ITS | Clinical Summary ---
Author Organization [facility] Address [address] [place] [address] Phone Care Team Providers Care Welder Oxyhydrogen Name Role Phone JEAN CARLOS VAZQUEZ, MADELINE Marquez Unavailable [phone] LISA VAZQUEZ, GUANAKITO Edwards Unavailable [phone] COLLETTE VAZQUEZ, JOSE Burr Primary Care Provider [phone] Reason for Visit and Chief Complaint * PHONE CALL Problems Includes: Problems addressed during this encounter and other active Problems All Visits Onset Date Resolved Date Provider Condition S tatus HX OF BREAST MALIGNANCY 11/28/2009 MOLLY BECKWITH WHNP-BC Active Last Documented On 02/14/2015 10:10AM ; [facility] Note: left breast - lumpectomy - ER/MT + - Grade I HYPOTHYROIDISM NOS 11/28/2009 MARTINE PEARSON M.D. Active Last Documented On 0 2:06PM ; [facility] Plan of Treatment Pending Tests Order Diagnosis Results Due Ordering Chinmay melvin Radiology @ other - *MAMMOGRAPHY SCREENING MAMMOGRAM Encntr screen mammogram for malignant neoplasm of breast 06/10/22 MOLLY BECKWITH WHNP-BC Last Documented On 3 10:32AM ; [facility] Radiology @ other - *MAMMOGRAPHY SCREENING MAMMOGRAM Encntr screen mammogram for malignant neoplasm of breast 10/19/23 MOLLY BECKWITH NP-BC Last Documented On 4 3:14PM ; [facility] Assessments Includes: Assessments from this encounter No Assessments Recorded Medical Equipment - Implanted Devices Includes: Current Devices No Medical Equipment Recorded Medications Includes: Medications discussed during this encounter and other current Medications Current Medications (continue as prescribed) Rosuvastatin Calcium 5 MG Oral Tablet 09/22/2023 Pro vider: Diagnosis: Last Documented On 10/05/2023 3:00PM By Catina RICO ; [facility] Synthroid 100 MCG OR TABS 11/26/2009 Provider: Diagnosis: Last Documented On 0 9:57AM By CARLINE BILLINGSLEY MA ; [facility] Medications Administered Includes: Administered Medications from this encounter No Administered Medications Recorded Results Includes: Results discussed during this encounter No Results Recorded For Specified Dates History of Present Illness Includes: History of Present Illness from this encounter No History of Present Illness Recorded Social History No Social History Recorded - Smoking Status Unknown Medical History Includes: Medical History addressed during this encounter No Medical History Recorded Family History Includes: Family History addressed during this encounter No Family History Recorded Review of Systems Includes: Review of Systems from this encounter No Review of Systems Recorded Mental Status Includes: Mental Status from this encounter No Mental Status Recorded Functional Status Includes: Functional Status from this encounter No Functional Status Recorded Physical Exam Includes: Physical Exam from this encounter No Physical Exam Recorded Allergies Includes: Active Allergies Substance Type Reaction Onset Date Resolved Date Statu s SEASONAL Allergy 10/05/2023 Active Last Documented On 4 3:00PM ; [facility] Encounters Encounter Provider Location Date Check-In Time Check-Out Time Diagnosis * PHONE CALL MOLLY BECKWITH [facility] 2 1:41PM 11:59PM Insurance Includes: Active Insurance Policies Plan Name Member ID Group # Subscriber Relationship Effect yan Dates 1 - MEDICARE PART A CLAIMS/NGS [id number] AMY Garcia 2 - [id number] PLAN F AMY Garcia Clinical Notes Includes: Clinical Notes from this encounter No Clinical Notes Recorded
--- OUTSIDE RECORDS SUMMARY | 2024-11-07 15:15 | XMS_ITS | Clinical Summary ---
Author Organization [facility] Address [address], [facility] [address] [place] [address] Phone Care Team Providers Care Vice President Financial Name Role Phone Kat Urbina APN Primary Care Provider Cristina vailable Allergies No known active allergies Medications levothyroxine (SYNTHROID) 88 MCG Tablet Take 88 mcg by mouth daily. Active other Take 1 Tab by mouth. A PILL FOR BREAST CANCER Active anastrozole (ARIMIDEX) 1 MG Tablet Take 1 mg by mouth daily. Active cyanocobalamin 1000 MCG Tablet Take 1,000 mcg by mouth daily. Active Cholecalciferol (VITAMIN D3) 1000 UNIT Tablet Take 1 Tab by mouth daily. Active Calcium Citrate-Vitamin D (CITRACAL + D PO) Take 1 Tab by mouth daily. Active Diphenhydramine- APAP, sleep, (TYLENOL PM EXTRA STRENGTH PO) Take 1 Tab by mouth nightly. Active Active Problems Problem Noted Date Diagnosed Date Hypothyroidism GERD (gastroesophageal reflux disease) Overview (08/07/2015): Ulcer Family History Medical History Relation Name Comments Cancer Father lung Heart Attack Father Hypertension Father High Cholesterol Mother Stroke Mother Relation Name Status Comments Father Mother Social History Tobacco Use Types Packs/Day Years Used Date Smoking Tobacco: Never Alcohol Use Standard Drinks/Week Comments No 0 (1 standard drink = 0.6 oz pur e alcohol) Comments Unknown Sex and Gender Information Value Date Recorded Sex Assigned at Not on file Legal Sex Female 11:41 PM CDT Gender Identity Not on file Sexual Orientation Not on file 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 Not on file Not on file Not on file Last Filed Vital Signs Vital Sign Reading Time Taken Comments Blood Pressure 131/72 07/20/2015 9:50 AM [employer] Pulse - - Temperature 36.5 C (97.7 F) 07/20/2015 9:50 AM [employer] Respiratory Rate 14 07/20/2015 9:50 AM [employer] Oxygen Saturation 100% 07/20/2015 9:50 AM [employer] Inhaled Oxygen Concentration - - Weight 63.5 kg (140 lb) 07/16/2015 1:00 PM [employer] Height 162.6 cm (5' 4 ) 07/16/2015 1:00 PM [employer] Body Mass Index 24.03 07/16/2015 1:00 PM [employer] Plan of Treatment Health Maintenance Due Date Last Done Comments Hepatitis C Virus (HCV) Screening 1955 TdaP Immunization 1955 SARS-COV-2 Immunization (#1) 1958 Zoster Immunization (1 of 2) 1972 Cologuard 2003 Immunochemical Fecal Occult Blood 2003 Pneumococcal Immunization (5 0+ years) (1 of 1 - PCV) 2003 Respiratory Syncytial Virus (RSV) Immunization (Adult) (1 - Risk 60-74 years 1-dose series) 2013 Influenza Immunization (#1) 2024 Colonoscopy 07/20/2025 07/20/2015, 08/21/2006 Colorectal Cancer Screening 07/20/2025 07/20/2015, 08/21/2006 Hepatitis B Immunization Aged Out No longer eligible based on patient's age to complete this topic Meningococcal Immunization (ACWY) Aged Out No longer eligible b ased on patient's age to complete this topic Rotavirus Immunization Aged Out No lo nger eligible based on patient's age to complete this topic Procedures Procedure Name Priority Date/Time Associated Diagnosis Comments COLONOSCOPY Routine 08/21/2006 from Last 3 Months or Most Recently Relevant to Health Maintenance Results * COLONOSCOPY (08/21/2006) Latasha Coffman MD PROCEDURE/MINOR SURGICAL ORDERABLES Final Result from Last 3 Months or Most Recently Relevant to Health Maintenance Insurance [facility] MEDICARE Care Teams Vice President Financial Relationship Specialty Start Date End Date Kat Urbina APN PCP - General Advanced Practice Nurse 07/19/15
--- OUTSIDE RECORDS SUMMARY | 2024-11-07 15:15 | XMS_ITS | Continuity of Care Document ---
Author Organization [facility] Address [address] [place] [address] Phone Care Team Providers Care Supervisor Jewelry Department Name Role Phone Angelic Jackson MD Unavailable Unavailable Procedures Procedure Date Xray Exam, Hip, Unilat, Two Or Three Vie ws OFFICE [id number] Advance Directives Directive Yes / No Effective Date File Name No Information Encounters Encounter Description Practice Location Reason(s) For Visit Diagnoses Date Provider Providers Copied on Encounter OFFICE [id number] ILED [facility], [address], [place], [place], [id number], tel:[phone] [facility] hip (chief complaint) Lumbar spondylosis Manuel [address]. [address], [address] [address], [place], [place], [id number], . tel:[phone] Referring Provider: [address] [address], [place], [address]. tel:[phone] Family History Family Member Type Diagnosis Age At Onset No Information Payers Payer name Insurance type Covered republican ID Authoriza tion(s) MEDICARE MB [id number] [employer] CI [id number] Social History Type Description Quantity Date Captured Comments Alcohol Use Details Unknown Caffeine Use Details Unknown Tobacco Use Status No Information Smoking Status No Information Sex Female Vital Signs Date / Time: Height Weight BMI Pulse Rate Blood Pressure Temperature Respiratory Rate Body Surface Area Head Circumference Head Circ. Percentile Wt./Hemant. Percentile BMI percentile Pulse Ox Inhaled Ox 1:57 PM 63.00 in 65.771 kg (145.00 lbs) 25.6 9 kg/m eter (2) Chief Complaint And Reason For Visit From encounter dated '03/17/2024 14:00'. hip (chief complaint). Description: here wtih low back pain and hx righ t thr 15 years ago - metalon metal and zero hip pain or problems xray intact thr plan hip ok exercises given for back fu as needed Reason For Referral Reason For Referral No Information Plan Of Treatment Date Type Action Status Referral Ordered: Xray Exam, Hip, Unilat, Two Or Three Views Right Right hip ordered History Of Present Illness Encounter Date Complaint History Of Prese nt Illness hip here wtih low ba ck pain and hx righ t thr 15 years ago - metal on metal and zero hip pain or problems xray intact thr plan hip ok exercises given for back fu as needed Functional Status Date Functional Assessmen t No Information Instructions Date Instruction Additional Infor mation exercises given fu a s needed full activity right hips Related to Lumbar spondylosis Disease process Assessments Type Assessment Date assessment Lumbar spondylosis Mental Status Date Cognitive Assessment Orientation - [place] ed to time, place, person, situation. Patient Care Teams Name Effective Dates (start - stop) Status Members No Information
--- OUTSIDE RECORDS SUMMARY | 2024-11-07 15:15 | XMS_ITS ---
Author Organization [facility] Address [address] [place] [address] Phone Care Team Providers Care Geography Professor Name Role Phone JEAN CARLOS VAZQUEZ, MADELINE Marquez Unavailable [phone] LISA VAZQUEZ, GUANAKITO Edwards Unavailable [phone] COLLETTE VAZQUEZ, JOSE Burr Primary Care Provider [phone] Reason for Referral Date Encounter Description Provider Reason for Referral 02/14/15 SALES DEVELOPMENT MANAGER EXAM MOLLY BECKWITH WHNP-BC Reques t Consultation By Specialist Problems Includes: Active, inactive, and resolved Problems All Visits Onset Date Resolved Date Provider Condition S tatus HX OF BREAST MALIGNANCY 11/28/2009 MOLLY BECKWITH WHNP-BC Active Last Documented On 02/14/2015 10:10AM ; [facility] Note: left breast - lumpectomy - ER/PA + - Grade I HYPOTHYROIDISM NOS 11/28/2009 MARTINE PEARSON M.D. Active Last Documented On 0 2:06PM ; [facility] Plan of Treatment Findings Encounter Date Ordered Clinical summary pro vided to patient WELL WOMAN - ESTABLISHED PT with MOLLY BECKWITH WHNP-BC 10/05/2023 Last Documented On 4 3:11PM ; [facility] Ordered Clinical summary pro vided to patient WELL WOMAN - ESTABLISHED PT with MOLLY BECKWITH WHNP-BC 07/01/2021 Last Documented On 1 10:11AM ; [facility] Ordered Clinical summary pro vided to patient ANNUAL INDUSTRIAL TRACTOR DRIVER EXAM with MOLLY BECKWITH WHNP-BC 04/25/2019 Last Documented On 9 10:25AM ; [facility] Ordered Clinical summary pro vided to patient ANNUAL INDUSTRIAL TRACTOR DRIVER EXAM with MOLLY BECKWITH WHNP-BC 04/22/2018 Last Documented On 8 10:37AM ; [facility] Ordered follow-up visit 1 ye ar or as needed ANNUAL INDUSTRIAL TRACTOR DRIVER EXAM with MOLLY BECKWITH WHNP-BC 04/22/2018 Last Documented On 8 10:37AM ; [facility] Ordered Clinical summary pro vided to patient ANNUAL INDUSTRIAL TRACTOR DRIVER EXAM with MOLLY BECKWITH WHNP-BC 04/01/2017 Last Documented On 7 10:59AM ; [facility] Ordered follow-up visit 1 ye ar or as needed ANNUAL INDUSTRIAL TRACTOR DRIVER EXAM with MOLLY BECKWITH WHNP-BC 04/01/2017 Last Documented On 7 10:59AM ; [facility] Ordered Clinical summary pro vided to patient ANNUAL INDUSTRIAL TRACTOR DRIVER EXAM with MOLLY BECKWITH WHNP-BC 02/18/2016 Last Documented On 6 9:17AM ; [facility] Ordered follow-up visit 1 ye ar or as needed ANNUAL INDUSTRIAL TRACTOR DRIVER EXAM with MOLLY BECKWITH WHNP-BC 02/18/2016 Last Documented On 6 9:17AM ; [facility] Ordered Clinical summary pro vided to patient SALES DEVELOPMENT MANAGER EXAM with MOLLY BECKWITH WHNP-BC 02/14/2015 Last Documented On 5 10:23AM ; [facility] Ordered follow-up visit 1 ye ar or as needed SALES DEVELOPMENT MANAGER EXAM with MOLLY BECKWITH WHNP-BC 02/14/2015 Last Documented On 5 10:23AM ; [facility] Ordered Transition in care, clinical summary provided SALES DEVELOPMENT MANAGER EXAM with MOLLY BECKWITH WHNP-BC 02/14/2015 Last Documented On 5 10:23AM ; [facility] Ordered Clinical summary pro vided to patient SALES DEVELOPMENT MANAGER EXAM with MOLLY BECKWITH WHNP-BC 02/08/2014 Last Documented On 4 10:02AM ; [facility] Ordered follow-up visit 1 ye ar or as needed SALES DEVELOPMENT MANAGER EXAM with MOLLY BECKWITH WHNP-BC 02/08/2014 Last Documented On 4 10:02AM ; [facility] Ordered Clinical summary pro vided to patient NEW SALES DEVELOPMENT MANAGER EXAM with MOLLY BECKWITH WHNP-BC 12/30/2012 Last Documented On 3 1:33PM ; [facility] Ordered follow-up visit 1 ye ar or as needed NEW SALES DEVELOPMENT MANAGER EXAM with MOLLY BECKWITH [facility] 12/30/2012 Last Documented On 3 1:33PM ; [facility] Pending Tests Order Diagnosis Results Due Ordering P rovider Radiology @ other - *MAMMOGRAPHY SCREENING MAMMOGRAM Encntr screen mammogram for malignant neoplasm of breast 10/19/23 MOLLY BECKWITH [facility] Last Documented On 4 3:14PM ; [facility] Instructions to patient Instructions for patient : B reast Self Exam discussed Last Documented On 4 2:55PM ; [facility] Instructions for patient : B reast Self Exam discussed Last Documented On 1 9:59AM ; [facility] Colonoscopy Handout given to patient Last Documented On 1 10:00AM ; [facility] Instructions for patient : B reast Self Exam discussed Last Documented On 9 10:06AM ; [facility] Colonoscopy Handout given to patient Last Documented On 9 10:07AM ; [facility] Instructions for patient : B reast Self Exam discussed Last Documented On 8 10:25AM ; [facility] Colonoscopy Handout given to patient Last Documented On 8 10:26AM ; [facility] Instructions for patient : B reast Self Exam discussed Last Documented On 7 10:41AM ; [facility] Colonoscopy Handout given to patient Last Documented On 7 10:42AM ; [facility] Instructions for patient : B reast Self Exam discussed Last Documented On 6 8:58AM ; [facility] Colonoscopy Handout given to patient Last Documented On 6 8:58AM ; [facility] Instructions for patient : B reast Self Exam discussed Last Documented On 5 10:09AM ; [facility] Colonoscopy Handout given to patient Last Documented On 5 10:11AM ; [facility] Instructions for patient : B reast Self Exam discussed Last Documented On 4 9:43AM ; [facility] Colonoscopy Handout given to patient Last Documented On 4 9:45AM ; [facility] Instructions for patient : B reast Self Exam discussed Last Documented On 3 1:22PM ; [facility] Colonoscopy Handout given to patient Last Documented On 3 1:32PM ; [facility] Instructions for patient : B reast Self Exam discussed. Reviewed monthly self breast examination and technique Last Documented On 2 9:08AM ; [facility] Recommend diet and exercise at least 30 min three times per week Last Documented On 2 9:08AM ; [facility] Discussed Gardasil vaccinati on and recommend vaccination for HPV prevention. Handout given. Patient undertsands sexual transmission of high-risk HPV and association with abnormal pap smear and cervical cancer. recommend to decrease high risk behaviors such as: number of sexual partners, smoking, and contraceptive use Last Documented On 2 9:08AM ; [facility] Recommend preventative vacci nation including but not limited to influenza/flu vaccine, DTP, Rubella, Hepatitis B vaccination series Last Documented On 2 9:08AM ; [facility] Recommend annual pap smear e xamination or every three year if high risk hpv negative and 3 consecutive normal pap examination during preceding three years Last Documented On 2 9:08AM ; [facility] Recommend TSH, fasting gluco se, fasting lipid panel, CBC, BMP Last Documented On 2 9:08AM ; [facility] Recommend Calcium supplement ation and weight bearing exercise Last Documented On 2 9:08AM ; [facility] Recommended Colonoscopy Pt r eferred to Gastroenetrologist. Pt understands that recommendation for colonoscopy is every 10 years after the age of 50 or age of 40 if first degree relative with history of colon cancer. Patient understands that failure to follow recommendation can lead to delayed diagnosis of colon cancer and patient accepts all responsibility regarding scheduling and follow up with special weapons and tactics officer Last Documented On 2 9:08AM ; [facility] Instructions for patient : B reast Self Exam discussed. Reviewed monthly self breast examination and technique Last Documented On 1 10:24AM ; [facility] Recommend diet and exercise at least 30 min three times per week Last Documented On 1 10:24AM ; [facility] Discussed Gardasil vaccinati on and recommend vaccination for HPV prevention. Handout given. Patient undertsands sexual transmission of high-risk HPV and association with abnormal pap smear and cervical cancer. recommend to decrease high risk behaviors such as: number of sexual partners, smoking, and contraceptive use Last Documented On 10:24AM ; [facility] Recommend preventative vacci nation including but not limited to influenza/flu vaccine, DTP, Rubella, Hepatitis B vaccination series Last Documented On 10:24AM ; [facility] Recommend annual pap smear e xamination or every three year if high risk hpv negative and 3 consecutive normal pap examination during preceding three years Last Documented On 10:24AM ; [facility] Recommend TSH, fasting gluco se, fasting lipid panel, CBC, BMP Last Documented On 10:24AM ; [facility] Recommend Calcium supplement ation and weight bearing exercise Last Documented On 1 10:24AM ; [facility] Recommended Bone Density Last Documented On 1 10:24AM ; [facility] Recommended Colonoscopy Pt r eferred to Gastroenetrologist. Pt understands that recommendation for colonoscopy is every 10 years after the age of 50 or age of 40 if first degree relative with history of colon cancer. Patient understands that failure to follow recommendation can lead to delayed diagnosis of colon cancer and patient accepts all responsibility regarding scheduling and follow up with special weapons and tactics officer Last Documented On 1 10:24AM ; [facility] Instructions for patient : B reast Self Exam discussed. Reviewed monthly self breast examination and technique Last Documented On 0 2:26PM ; [facility] Recommend diet and exercise at least 30 min three times per week Last Documented On 0 2:26PM ; [facility] Discussed Gardasil vaccinati on and recommend vaccination for HPV prevention. Handout given. Patient undertsands sexual transmission of high-risk HPV and association with abnormal pap smear and cervical cancer. recommend to decrease high risk behaviors such as: number of sexual partners, smoking, and contraceptive use Last Documented On 0 2:26PM ; [facility] Recommend preventative vacci nation including but not limited to influenza/flu vaccine, DTP, Rubella, Hepatitis B vaccination series Last Documented On 0 2:26PM ; [facility] Recommend annual pap smear e xamination or every three year if high risk hpv negative and 3 consecutive normal pap examination during preceding three years Last Documented On 0 2:26PM ; [facility] Recommend TSH, fasting gluco se, fasting lipid panel, CBC, BMP Last Documented On 0 2:26PM ; [facility] Recommend Calcium supplement ation and weight bearing exercise Last Documented On 0 2:26PM ; [facility] Recommended Bone Density Last Documented On 0 2:26PM ; [facility] Recommended Colonoscopy Pt r eferred to Gastroenetrologist. Pt understands that recommendation for colonoscopy is every 10 years after the age of 50 or age of 40 if first degree relative with history of colon cancer. Patient understands that failure to follow recommendation can lead to delayed diagnosis of colon cancer and patient accepts all responsibility regarding scheduling and follow up with special weapons and tactics officer Last Documented On 0 2:26PM ; [facility] Education and Decision Aids were provided during visit for: Patient Education: Daily huong cium and vitamin D Last Documented On 4 2:55PM ; [facility] Patient Education: weight be aring exercise Last Documented On 4 2:55PM ; [facility] Patient Education: Daily huong cium and vitamin D Last Documented On 1 9:59AM ; [facility] Patient Education: weight be aring exercise Last Documented On 1 9:59AM ; [facility] Patient Education: Daily huong cium and vitamin D Last Documented On 9 10:06AM ; [facility] Patient Education: weight be aring exercise Last Documented On 9 10:06AM ; [facility] Patient Education: Daily huong cium and vitamin D Last Documented On 8 10:25AM ; [facility] Patient Education: weight be aring exercise Last Documented On 8 10:25AM ; [facility] Patient Education: Daily huong cium and vitamin D Last Documented On 7 10:41AM ; [facility] Patient Education: weight be aring exercise Last Documented On 7 10:41AM ; [facility] Patient Education: Daily huong cium and vitamin D Last Documented On 6 8:58AM ; [facility] Patient Education: weight be aring exercise Last Documented On 6 8:58AM ; [facility] Patient Education: Daily huong cium and vitamin D Last Documented On 5 10:09AM ; [facility] Patient Education: weight be aring exercise Last Documented On 5 10:09AM ; [facility] Patient Education: Daily huong cium and vitamin D Last Documented On 4 9:43AM ; [facility] Patient Education: weight be aring exercise Last Documented On 4 9:43AM ; [facility] Patient Education: Daily huong cium and vitamin D Last Documented On 3 1:22PM ; [facility] Patient Education: weight be aring exercise Last Documented On 3 1:22PM ; [facility] Assessments Includes: Assessments for all patient encounters Findings Encounter Date NORMAL FEMALE EXAM WELL WOMAN - ESTABLISHED PT w ayo BECKWITH NP-BC 10/05/2023 Last Documented On 4 3:11PM ; [facility] Screening Malig. Neoplasm Rectum WELL WO MAN - ESTABLISHED PT with MOLLY BECKWITH NP-BC 10/05/2023 Last Documented On 4 3:11PM ; [facility] NORMAL FEMALE EXAM WELL WOMAN - ESTABLISHED PT w ayo BECKWITH NP-BC 07/01/2021 Last Documented On 1 10:11AM ; [facility] Screening Malig. Neoplasm Rectum WELL WO MAN - ESTABLISHED PT with MOLLY BECKWITH NP-BC 07/01/2021 Last Documented On 1 10:11AM ; [facility] NORMAL FEMALE EXAM ANNUAL INDUSTRIAL TRACTOR DRIVER EXAM with MOLLY BECKWITH NP-BC 04/25/2019 Last Documented On 9 10:25AM ; [facility] Screening Malig. Neoplasm Rectum ANNUAL INDUSTRIAL TRACTOR DRIVER EXAM with MOLLY BECKWITH WHNP-BC 04/25/2019 Last Documented On 9 10:25AM ; [facility] NORMAL FEMALE EXAM ANNUAL INDUSTRIAL TRACTOR DRIVER EXAM with MOLLY BECKWITH [facility]-BC 04/22/2018 Last Documented On 8 10:37AM ; [facility] Screening Malig. Neoplasm Rectum ANNUAL INDUSTRIAL TRACTOR DRIVER EXAM with MOLLY BECKWITH [facility]-BC 04/22/2018 Last Documented On 8 10:37AM ; [facility] NORMAL FEMALE EXAM ANNUAL INDUSTRIAL TRACTOR DRIVER EXAM with MOLLY BECKWITH [facility]-BC 04/01/2017 Last Documented On 7 10:59AM ; [facility] Screening Malig. Neoplasm Rectum ANNUAL INDUSTRIAL TRACTOR DRIVER EXAM with MOLLY BECKWITH [facility] 04/01/2017 Last Documented On 7 10:59AM ; [facility] NORMAL FEMALE EXAM ANNUAL INDUSTRIAL TRACTOR DRIVER EXAM with MOLLY BECKWITH [facility]-BC 02/18/2016 Last Documented On 6 9:17AM ; [facility] Screening Malig. Neoplasm Rectum ANNUAL INDUSTRIAL TRACTOR DRIVER EXAM with MOLLY BECKWITH [facility] 02/18/2016 Last Documented On 6 9:17AM ; [facility] NORMAL FEMALE EXAM SALES DEVELOPMENT MANAGER EXAM with MOLLY BECKWITH [place] [facility] 02/14/2015 Last Documented On 5 10:23AM ; [facility] Screening Malig. Neoplasm Rectum SALES DEVELOPMENT MANAGER EXAM with Jerry BECKWITH [facility] 02/14/2015 Last Documented On 5 10:23AM ; [facility] NORMAL FEMALE EXAM SALES DEVELOPMENT MANAGER EXAM with MOLLY BECKWITH [place] [facility] 02/08/2014 Last Documented On 4 10:02AM ; [facility] Screening Malig. Neoplasm Rectum SALES DEVELOPMENT MANAGER EXAM with Jerry BECKWITH [facility] 02/08/2014 Last Documented On 4 10:02AM ; [facility] NORMAL FEMALE EXAM NEW SALES DEVELOPMENT MANAGER EXAM with MOLLY JUAREZ JAMMIE [facility]- 12/30/2012 Last Documented On 3 1:33PM ; [facility] Screening Malig. Neoplasm Rectum NEW SALES DEVELOPMENT MANAGER EXAM wi th MOLLY A AMENA [facility]- 12/30/2012 Last Documented On 3 1:33PM ; [facility] Asymptomatic postmenopausal status ANNUA L INDUSTRIAL TRACTOR DRIVER EXAM with MARTINE PEARSON M.D. 12/17/2011 Last Documented On 2 9:36AM ; [facility] MAMMOGRAM SCREENING ANNUAL INDUSTRIAL TRACTOR DRIVER EXAM with MARTINE PEARSON M.D. 12/17/2011 Last Documented On 2 9:36AM ; [facility] NORMAL FEMALE EXAM ANNUAL INDUSTRIAL TRACTOR DRIVER EXAM with MARTINE PEARSON M.D. 12/17/2011 Last Documented On 2 9:36AM ; [facility] Screening Malig. Neoplasm Rectum ANNUAL INDUSTRIAL TRACTOR DRIVER EXAM with MARTINE PEARSON M.D. 12/17/2011 Last Documented On 2 9:36AM ; [facility] Asymptomatic postmenopausal status SALES DEVELOPMENT MANAGER EXAM with MARTINE PEARSON M.D. 12/11/2010 Last Documented On 1 10:37AM ; [facility] MAMMOGRAM SCREENING SALES DEVELOPMENT MANAGER EXAM with MARTINE ROBB M.D. 12/11/2010 Last Documented On 1 10:37AM ; [facility] NORMAL FEMALE EXAM SALES DEVELOPMENT MANAGER EXAM with MARTINE FORTUNE M.D. 12/11/2010 Last Documented On 1 10:37AM ; [facility] Screening Malig. Neoplasm Rectum SALES DEVELOPMENT MANAGER EXAM with Yannick PEARSON M.D. 12/11/2010 Last Documented On 1 10:37AM ; [facility] Asymptomatic postmenopausal status SALES DEVELOPMENT MANAGER EXAM with MARTINE PEARSON M.D. 11/28/2009 Last Documented On 0 2:39PM ; [facility] MAMMOGRAM SCREENING SALES DEVELOPMENT MANAGER EXAM with MRATINE ROBB M.D. 11/28/2009 Last Documented On 0 2:39PM ; [facility] NORMAL FEMALE EXAM SALES DEVELOPMENT MANAGER EXAM with MARTINE FORTUNE M.D. 11/28/2009 Last Documented On 0 2:39PM ; [facility] SCREENING FOR CONDITION NEC SALES DEVELOPMENT MANAGER EXAM with DEBRA PEARSON M.D. 11/28/2009 Last Documented On 0 2:39PM ; [facility] Screening Malig. Neoplasm Rectum SALES DEVELOPMENT MANAGER EXAM with Yannick PEARSON M.D. 11/28/2009 Last Documented On 0 2:39PM ; [facility] Instructions Includes: Instructions for all patient encounters Instructions to patient Instructions for patient : B reast Self Exam discussed Last Documented On 4 2:55PM ; [facility] Instructions for patient : B reast Self Exam discussed Last Documented On 1 9:59AM ; [facility] Colonoscopy Handout given to patient Last Documented On 1 10:00AM ; [facility] Instructions for patient : B reast Self Exam discussed Last Documented On 9 10:06AM ; [facility] Colonoscopy Handout given to patient Last Documented On 9 10:07AM ; [facility] Instructions for patient : B reast Self Exam discussed Last Documented On 8 10:25AM ; [facility] Colonoscopy Handout given to patient Last Documented On 8 10:26AM ; [facility] Instructions for patient : B reast Self Exam discussed Last Documented On 7 10:41AM ; [facility] Colonoscopy Handout given to patient Last Documented On 7 10:42AM ; [facility] Instructions for patient : B reast Self Exam discussed Last Documented On 6 8:58AM ; [facility] Colonoscopy Handout given to patient Last Documented On 6 8:58AM ; [facility] Instructions for patient : B reast Self Exam discussed Last Documented On 5 10:09AM ; [facility] Colonoscopy Handout given to patient Last Documented On 5 10:11AM ; [facility] Instructions for patient : B reast Self Exam discussed Last Documented On 4 9:43AM ; [facility] Colonoscopy Handout given to patient Last Documented On 4 9:45AM ; [facility] Instructions for patient : B reast Self Exam discussed Last Documented On 3 1:22PM ; [facility] Colonoscopy Handout given to patient Last Documented On 3 1:32PM ; [facility] Instructions for patient : B reast Self Exam discussed. Reviewed monthly self breast examination and technique Last Documented On 2 9:08AM ; [facility] Recommend diet and exercise at least 30 min three times per week Last Documented On 2 9:08AM ; [facility] Discussed Gardasil vaccinati on and recommend vaccination for HPV prevention. Handout given. Patient undertsands sexual transmission of high-risk HPV and association with abnormal pap smear and cervical cancer. recommend to decrease high risk behaviors such as: number of sexual partners, smoking, and contraceptive use Last Documented On 9:08AM ; [facility] Recommend preventative vacci nation including but not limited to influenza/flu vaccine, DTP, Rubella, Hepatitis B vaccination series Last Documented On 9:08AM ; [facility] Recommend annual pap smear e xamination or every three year if high risk hpv negative and 3 consecutive normal pap examination during preceding three years Last Documented On 2 9:08AM ; [facility] Recommend TSH, fasting gluco se, fasting lipid panel, CBC, BMP Last Documented On 9:08AM ; [facility] Recommend Calcium supplement ation and weight bearing exercise Last Documented On 2 9:08AM ; [facility] Recommended Colonoscopy Pt r eferred to Gastroenetrologist. Pt understands that recommendation for colonoscopy is every 10 years after the age of 50 or age of 40 if first degree relative with history of colon cancer. Patient understands that failure to follow recommendation can lead to delayed diagnosis of colon cancer and patient accepts all responsibility regarding scheduling and follow up with special weapons and tactics officer Last Documented On 2 9:08AM ; [facility] Instructions for patient : B reast Self Exam discussed. Reviewed monthly self breast examination and technique Last Documented On 10:24AM ; [facility] Recommend diet and exercise at least 30 min three times per week Last Documented On 10:24AM ; [facility] Discussed Gardasil vaccinati on and recommend vaccination for HPV prevention. Handout given. Patient undertsands sexual transmission of high-risk HPV and association with abnormal pap smear and cervical cancer. recommend to decrease high risk behaviors such as: number of sexual partners, smoking, and contraceptive use Last Documented On 05/04/201 1 10:24AM ; [facility] Recommend preventative vacci nation including but not limited to influenza/flu vaccine, DTP, Rubella, Hepatitis B vaccination series Last Documented On 1 10:24AM ; [facility] Recommend annual pap smear e xamination or every three year if high risk hpv negative and 3 consecutive normal pap examination during preceding three years Last Documented On 1 10:24AM ; [facility] Recommend TSH, fasting gluco se, fasting lipid panel, CBC, BMP Last Documented On 1 10:24AM ; [facility] Recommend Calcium supplement ation and weight bearing exercise Last Documented On 1 10:24AM ; [facility] Recommended Bone Density Last Documented On 1 10:24AM ; [facility] Recommended Colonoscopy Pt r eferred to Gastroenetrologist. Pt understands that recommendation for colonoscopy is every 10 years after the age of 50 or age of 40 if first degree relative with history of colon cancer. Patient understands that failure to follow recommendation can lead to delayed diagnosis of colon cancer and patient accepts all responsibility regarding scheduling and follow up with special weapons and tactics officer Last Documented On 1 10:24AM ; [facility] Instructions for patient : B reast Self Exam discussed. Reviewed monthly self breast examination and technique Last Documented On 0 2:26PM ; [facility] Recommend diet and exercise at least 30 min three times per week Last Documented On 0 2:26PM ; [facility] Discussed Gardasil vaccinati on and recommend vaccination for HPV prevention. Handout given. Patient undertsands sexual transmission of high-risk HPV and association with abnormal pap smear and cervical cancer. recommend to decrease high risk behaviors such as: number of sexual partners, smoking, and contraceptive use Last Documented On 0 2:26PM ; [facility] Recommend preventative vacci nation including but not limited to influenza/flu vaccine, DTP, Rubella, Hepatitis B vaccination series Last Documented On 0 2:26PM ; [facility] Recommend annual pap smear e xamination or every three year if high risk hpv negative and 3 consecutive normal pap examination during preceding three years Last Documented On 0 2:26PM ; [facility] Recommend TSH, fasting gluco se, fasting lipid panel, CBC, BMP Last Documented On 0 2:26PM ; [facility] Recommend Calcium supplement ation and weight bearing exercise Last Documented On 0 2:26PM ; [facility] Recommended Bone Density Last Documented On 0 2:26PM ; [facility] Recommended Colonoscopy Pt r eferred to Gastroenetrologist. Pt understands that recommendation for colonoscopy is every 10 years after the age of 50 or age of 40 if first degree relative with history of colon cancer. Patient understands that failure to follow recommendation can lead to delayed diagnosis of colon cancer and patient accepts all responsibility regarding scheduling and follow up with special weapons and tactics officer Last Documented On 0 2:26PM ; [facility] Education and Decision Aids were provided during visit for: Patient Education: Daily huong cium and vitamin D Last Documented On 4 2:55PM ; [facility] Patient Education: weight be aring exercise Last Documented On 4 2:55PM ; [facility] Patient Education: Daily huong cium and vitamin D Last Documented On 1 9:59AM ; [facility] Patient Education: weight be aring exercise Last Documented On 1 9:59AM ; [facility] Patient Education: Daily huong cium and vitamin D Last Documented On 9 10:06AM ; [facility] Patient Education: weight be aring exercise Last Documented On 9 10:06AM ; [facility] Patient Education: Daily huong cium and vitamin D Last Documented On 8 10:25AM ; [facility] Patient Education: weight be aring exercise Last Documented On 8 10:25AM ; [facility] Patient Education: Daily huong cium and vitamin D Last Documented On 7 10:41AM ; [facility] Patient Education: weight be aring exercise Last Documented On 7 10:41AM ; [facility] Patient Education: Daily huong cium and vitamin D Last Documented On 6 8:58AM ; [facility] Patient Education: weight be aring exercise Last Documented On 6 8:58AM ; [facility] Patient Education: Daily huong cium and vitamin D Last Documented On 5 10:09AM ; [facility] Patient Education: weight be aring exercise Last Documented On 5 10:09AM ; [facility] Patient Education: Daily huong cium and vitamin D Last Documented On 4 9:43AM ; [facility] Patient Education: weight be aring exercise Last Documented On 4 9:43AM ; [facility] Patient Education: Daily huong cium and vitamin D Last Documented On 3 1:22PM ; [facility] Patient Education: weight be aring exercise Last Documented On 3 1:22PM ; [facility] Medical Equipment - Implanted Devices Includes: Current and historical Devices No Medical Equipment Recorded Medications Includes: Current and historical Medications Current Medications (continue as prescribed) Rosuvastatin Calcium 5 MG Oral Tablet 09/22/2023 Pro vider: Diagnosis: Last Documented On 10/05/2023 3:00PM By Catina RICO ; [facility] Synthroid 100 MCG OR TABS 11/26/2009 Provider: Diagnosis: Last Documented On 0 9:57AM By CARLINE BILLINGSLEY MA ; [facility] Past Medications on file Arimidex 1 MG OR TABS 02/08/2014 - 04/01/2017 Provider : Diagnosis: Last Documented On 7 10:50AM By SELENA RICO ; [facility] Omeprazole 20 MG OR TBEC 12/30/2012 - 02/08/2014 Chinmay caleroder: Diagnosis: Last Documented On 02/08/2014 9:52AM By SELENA RICO ; [facility] Advil PM 200-25 MG OR CAPS 12/17/2011 - 02/08/2014 Pro vider: Diagnosis: Last Documented On 02/08/2014 9:52AM By SELENA RICO ; [facility] Arimidex 1 MG OR TABS 11/28/2009 - 12/30/2012 Provider : Diagnosis: Last Documented On 3 12:57PM By SELENA RICO ; [facility] Medications Administered Includes: Administered Medications in patient's chart No Administered Medications Recorded Results Includes: Results from 11/08/2023 through 11/07/2024 No Results Recorded For Specified Dates History of Present Illness History of Present Illness not supported for this document type No History of Present Illness Recorded Social History Description Last Updated Not sexually active 10/05/2023 Last Documented On 4 3:11PM ; [facility] Not using alcohol 10/05/2023 Last Documented On 4 3:11PM ; [facility] Tobacco non-user 10/05/2023 Last Documented On 4 3:11PM ; [facility] Non-smoker 04/25/2019 Last Documented On 9 10:25AM ; [facility] Not using drugs 04/25/2019 Last Documented On 9 10:25AM ; [facility] Smoking Status Unknown Procedures and Surgical History Surgical History Last Updated Surgical / procedural history Rt hip rep lacement in 200802/08/2014 Last Documented On 4 10:02AM ; [facility] Breast Biopsy Lt Breast bx 2006 ca 12/30 Last Documented On 3 1:33PM ; [facility] History of tubal ligation 11/28/2009 Last Documented On 0 2:39PM ; [facility] Medical History Includes: Medical History in patient's chart Description Last Updated History of diaignostic fiberoptic colono scopy 202210/05/2023 Last Documented On 4 3:11PM ; [facility] History of screening mammogram was perfo rmed 07/29/2022 10/05/2023 Last Documented On 4 3:11PM ; [facility] History of complete colonoscopy 2015 Dr Fitch repeat in 10 years 04/25/2019 Last Documented On 9 10:25AM ; [facility] History of hypothyroidism 12/30/2012 Last Documented On 3 1:33PM ; [facility] LMP: 2002 [employer] 11/28/2009 Last Documented On 0 2:39PM ; [facility] History of breast cancer 11/28/2009 Last Documented On 0 2:39PM ; [facility] History of breast fibrocystic disease Last Documented On 0 2:39PM ; [facility] History of thyroid disorder 11/28/2009 Last Documented On 0 2:39PM ; [facility] Para 3 11/28/2009 Last Documented On 0 2:39PM ; [facility] 3 10/22/2009 Last Documented On 0 3:58PM ; [facility] Status post tubal ligation 1980 10/23/19 10 Last Documented On 0 3:58PM ; [facility] Thyroid disease 10/22/2009 Last Documented On 0 3:58PM ; [facility] Family History Includes: Family History in patient's chart Description Last Updated Maternal history of pure hypercholestero lemia mom 04/25/2019 Last Documented On 9 10:25AM ; [facility] Paternal history of family history of he art disease DAD 04/25/2019 Last Documented On 9 10:25AM ; [facility] Paternal history of hypertension dad Last Documented On 9 10:25AM ; [facility] Family history of malignant female breas t neoplasm maternal 1st cousin 04/22/2018 Last Documented On 8 10:37AM ; [facility] Review of Systems Review of Systems not supported for this document type No Review of Systems Recorded Mental Status No Mental Status Recorded Functional Status No Functional Status Recorded Physical Exam Physical Exam not supported for this document type No Physical Exam Recorded Immunizations Includes: Immunizations in patient's chart Vaccine Dose # Date Site Reaction(s) Status Source Influenza (Quadrivalent)36 mo.& older PF 0.5ml (SD) 1 05/16/2009 Complete (Reported) Patient Last Documented On 0 2:33PM ; [facility] Td 1 Complete (Reported) Bianka ent Last Documented On 1 10:25AM ; [facility] Allergies Includes: Active, inactive, and resolved Allergies Substance Type Reaction Onset Date Resolved Date Statu s SEASONAL Allergy 10/05/2023 Active Last Documented On 4 3:00PM ; [facility] Insurance Includes: Active Insurance Policies Plan Name Member ID Group # Subscriber Relationship Effect yan Dates 1 - MEDICARE PART A CLAIMS/NGS [id number] AMY Garcia 2 - [employer] [id number] PLAN F AMY Garcia Clinical Notes Includes: Signed Clinical Notes starting from 08/29/2022 No Clinical Notes Recorded
--- OUTSIDE RECORDS SUMMARY | 2024-11-07 15:15 | XMS_ITS | Clinical Summary ---
Author Organization [facility] Address [address] [place] [address] Phone Care Team Providers Care Cardiology Consultants Name Role Phone JEAN CARLOS VAZQUEZ, MADELINE Marquez Unavailable [phone] LISA VAZQUEZ, GUANAKITO Edwards Unavailable [phone] COLLETTE VAZQUEZ, JOSE Burr Primary Care Provider [phone] Reason for Visit and Chief Complaint The Chief Complaint is: WWE- no issues or concerns Problems Includes: Problems addressed during this encounter and other active Problems All Visits Onset Date Resolved Date Provider Condition S tatus HX OF BREAST MALIGNANCY 11/28/2009 MOLLY BECKWITH NP-BC Active Last Documented On 02/14/2015 10:10AM ; [facility] Note: left breast - lumpectomy - ER/MO + - Grade I HYPOTHYROIDISM NOS 11/28/2009 MARTINE PEARSON M.D. Active Last Documented On 0 2:06PM ; [facility] Plan of Treatment - Clinical summary provided to patient - Last Documented On 10/05/2023 3:11PM ; [facility] Pending Tests Order Diagnosis Results Due Ordering P roashwinder Radiology @ other - *MAMMOGRAPHY SCREENING MAMMOGRAM Encntr screen mammogram for malignant neoplasm of breast 10/19/23 MOLLY BECKWITH WHNP-BC Last Documented On 4 3:14PM ; [facility] Instructions to patient Instructions for patient : B reast Self Exam discussed Last Documented On 4 2:55PM ; [facility] Education and Decision Aids were provided during visit for: Patient Education: Daily huong cium and vitamin D Last Documented On 4 2:55PM ; [facility] Patient Education: weight be aring exercise Last Documented On 4 2:55PM ; [facility] Assessments Includes: Assessments from this encounter Findings - NORMAL FEMALE EXAM [Z01.419 - Encounter for gynecological examination (general) (routine) without abnormal findings] - Last Documented On 10/05/2023 3:11PM ; [facility] - Screening Malig. Neoplasm Rectum [Z12.12 - Encounter for screening for malignant neoplasm of rectum] - Last Documented On 10/05/2023 3:11PM ; [facility] Instructions Includes: Instructions from this encounter Instructions to patient Instructions for patient : B reast Self Exam discussed Last Documented On 4 2:55PM ; [facility] Education and Decision Aids were provided during visit for: Patient Education: Daily huong cium and vitamin D Last Documented On 4 2:55PM ; [facility] Patient Education: weight be aring exercise Last Documented On 4 2:55PM ; [facility] Medical Equipment - Implanted Devices Includes: Current Devices No Medical Equipment Recorded Medications Includes: Medications discussed during this encounter and other current Medications Current Medications (continue as prescribed) Rosuvastatin Calcium 5 MG Oral Tablet 09/22/2023 Pro vider: Diagnosis: Last Documented On 10/05/2023 3:00PM By Catina RICO ; [facility] Synthroid 100 MCG OR TABS 11/26/2009 Provider: Diagnosis: Last Documented On 0 9:57AM By CARLINE BILLINGSLEY MA ; [facility] Medications Administered Includes: Administered Medications from this encounter No Administered Medications Recorded Vital Signs Includes: Vital Signs from this encounter Vital Name 10/05/2023 02:54P Blood Pressure Sitting (mmHg) 126/82 Temp-Temporal 98.1 Height (in) 63 Weight (lb) 151 Body Mass Index 26.7 Body Surface Area 1.7 Last Documented: On 10/05/2023 2:56PM ; [facility] Results Includes: Results discussed during this encounter LIQUID BASED PAP W HPV [facility] Laboratory Ordered by MOLLY ORTIZ on 07/01/2021 [address] [facility], [place], [address] Collected: 07/01/2021 Report ed: 07/08/2021 10:10 tel: Last Documented On 1 10:03AM ; [facility] Reviewed by LORRAINE JARRELL RN [facility] on 07/09/2021; All test results are final unless otherwise noted. HPV mRNA E6/E7 Not Detected (Not Detected) N (Normal) Last Documented On 1 10:28AM ; [facility] Note: Methodology: Caustic Mixer-Mediate d AmplificationThis assay detects E6/E7 viral messenger RNA (mRNA) from 14high-risk HPV types (16,18,31,33,35,39,45,51,52,56,58,59,66,68).The analytical performance characteristics of thisassay have been determined by [employer].The modifications have not been cleared or approvedby the FDA. This assay has been validated pursuantto the CLIA regulations and is used forclinical purposes.For additional information, please refer tohttp://education.M-Files/faq/IAG306j2(This link if provided for information/educational purposes only.)THIS TEST WAS PERFORMED AT:[employer] [facility] [id number] [place] [address]LKGXQPU BECKER,DO,MPHEXPLANATORY NOTE:The Pap is a screening test for cervical cancer. It isnot a diagnostic test and is subject to false negativeand false positive results. It is most reliable when asatisfactory sample, regularly obtained, is submittedwith relevant clinical findings and history, and whenthe Pap result is evaluated along with historic andcurrent clinical information.THIS TEST WAS PERFORMED AT:[facility] [address] [place] [address]LAKY-QGFS VO,MDResponsible Observer: (rfl) LIQUID BASED PAP W HPV See Note None Last Documented On 1 10:28AM ; [facility] Note: Routine [id number] NO T PROVIDEDCervix, EndocervixSATISFACTORY FOR EVALUATIONNegative for intraepithelial lesion or malignancy.Atrophic pattern; predominantly parabasal cellsThis Pap test has been evaluated with computerassisted technology.MDG, CT(ASCP)CT screening location: [place] [address] [address] TIKA [id number] Observer: (SAVANNAH) PAP SMEAR ABNORMAL? NO None Last Documented On 1 10:28AM ; [facility] Note: Responsible Observer: (SAVANNAH) History of Present Illness Includes: History of Present Illness from this encounter NATHANIEL DIAZ is a 68 year old female. - Allergy list reviewed - Medication list reviewed - Primary Care Provider: Dr. Magdalene Clark Social History Description Last Updated Not sexually active 10/05/2023 Last Documented On 4 3:11PM ; [facility] Not using alcohol 10/05/2023 Last Documented On 4 3:11PM ; [facility] Tobacco non-user 10/05/2023 Last Documented On 4 3:11PM ; [facility] Non-smoker 04/25/2019 Last Documented On 4 2:53PM ; [facility] Not using drugs 04/25/2019 Last Documented On 4 2:53PM ; [facility] Smoking Status Unknown Procedures and Surgical History Includes: Procedures from this encounter Procedures Code Diagnosis Performing Provider Service L ocation Service Date low fat diet Last Documented On 4 2:56PM ; [facility] use of tobacco assessment performed 1000F Last Documented On 4 3:00PM ; [facility] Pap smear not done [address] Last Documented On 4 2:56PM ; [facility] history of cervical Pap smear 07/01/2021 [id number] Last Documented On 4 3:00PM ; [facility] fecal occult blood test was negative 11506 Last Documented On 4 2:55PM ; [facility] patient recently had a dexa scan Patient reports 2021- unsure of exact date Last Documented On 4 3:00PM ; [facility] Cervical Pap Smear performed Q0091 Last Documented On 4 2:59PM ; [facility] Surgical History Last Updated Surgical / procedural history Rt hip rep lacement in 200802/08/2014 Last Documented On 4 2:53PM ; [facility] Breast Biopsy Lt Breast bx 2006 ca 12/30 Last Documented On 4 2:53PM ; [facility] History of tubal ligation 11/28/2009 Last Documented On 4 2:53PM ; [facility] Medical History Includes: Medical History addressed during this encounter Description Last Updated History of diaignostic fiberoptic colono scopy 202210/05/2023 Last Documented On 4 3:11PM ; [facility] History of screening mammogram was perfo rmed 07/29/2022 10/05/2023 Last Documented On 4 3:11PM ; [facility] History of hypothyroidism 12/30/2012 Last Documented On 4 2:53PM ; [facility] LMP: 2002 [employer] 11/28/2009 Last Documented On 4 2:53PM ; [facility] History of breast cancer 11/28/2009 Last Documented On 4 2:53PM ; [facility] History of breast fibrocystic disease Last Documented On 4 2:53PM ; [facility] History of thyroid disorder 11/28/2009 Last Documented On 4 2:53PM ; [facility] Para 3 11/28/2009 Last Documented On 4 2:53PM ; [facility] 3 10/22/2009 Last Documented On 4 2:53PM ; [facility] Status post tubal ligation 1980 10/23/19 Last Documented On 4 2:53PM ; [facility] Thyroid disease 10/22/2009 Last Documented On 4 2:53PM ; [facility] Family History Includes: Family History addressed during this encounter Description Last Updated Maternal history of pure hypercholestero lemia mom 04/25/2019 Last Documented On 4 2:53PM ; [facility] Paternal history of family history of he art disease DAD 04/25/2019 Last Documented On 4 2:53PM ; [facility] Paternal history of hypertension dad Last Documented On 4 2:53PM ; [facility] Family history of malignant female breas t neoplasm maternal 1st cousin 04/22/2018 Last Documented On 4 2:53PM ; [facility] Review of Systems Includes: Review of Systems from this encounter Gastrointestinal: No pelvic pain. Genitourinary: No postmenopausal bleeding. No vaginal discharge. Mental Status Includes: Mental Status from this encounter No Mental Status Recorded Functional Status Includes: Functional Status from this encounter No Functional Status Recorded Physical Exam Includes: Physical Exam from this encounter Allergies Includes: Active Allergies Substance Type Reaction Onset Date Resolved Date Statu s SEASONAL Allergy 10/05/2023 Active Last Documented On 4 3:00PM ; [facility] Encounters Encounter Provider Location Date Check-In Time Check-Out Time Diagnosis [facility] 10/05/19 24 2:52PM 3:12PM Screening Malig. Neoplasm Rectum,Normal Female Exam Insurance Includes: Active Insurance Policies Plan Name Member ID Group # Subscriber Relationship Effect yan Dates 1 - MEDICARE PART A CLAIMS/NGS [id number] AMY DIAZ Self 2 - Mr. Number [id number] PLAN F AMY HERNÁNDEZGINS Self Clinical Notes Includes: Clinical Notes from this encounter * Progress note Date Encounter Last Documented by 10/05/2023 [facility]OMAN - ESTABLISHED PT Last documented on 10/05/2023; 3:11 PM[facility] Active Problems & Conditions - HX OF BREAST MALIGNANCY - left breast - lumpectomy - ER/MO + - Grade I - HYPOTHYROIDISM NOS Chief Complaint The Chief Complaint is: WWE- no issues or concerns. History of Present Illness AMY DIAZ is a 68 year old female. - Allergy list reviewed - Medication list reviewed - Primary Care Provider: Dr. Magdalene Clark Current Medication - Rosuvastatin Calcium 5 MG Oral Tablet 30 days, 0 refills - Synthroid 100 MCG Tablet 0 days, 0 refills Past Medical/Surgical History Reported: LMP: 2001 [employer] and status post tubal ligation 1979. Medical: Thyroid disease. Surgical / Procedural: Surgical / procedural history Rt hip replacement in 2008. Breast Biopsy Lt Breast bx 2006 ca. : 3 and para 3. Other: Diaignostic fiberoptic colonoscopy 2022. Screening mammogram was performed 07/29/2022 Diagnoses: Fibrocystic disease of breast. Hypothyroidism. Breast cancer Surgical: - Tubal ligation Social History Tobacco use: Tobacco non-user and non-smoker. Alcohol: Not using alcohol. Drug Use: Not using drugs. Sexual: Not sexually active. Allergies - SEASONAL Family History Malignant female breast neoplasm maternal 1st cousin Paternal: Heart disease DAD Systemic hypertension dad Maternal: Pure hypercholesterolemia mom Review Of Systems Gastrointestinal: No pelvic pain. Genitourinary: No postmenopausal bleeding. No vaginal discharge. Physical Findings - Vitals taken 10/05/2023 02:54 pm BP-Sitting 126/82 mmHg Temp-Temporal 98.1 F Height 63 in Weight 151 lbs Body Mass Index 26.7 kg/m2 Body Surface Area 1.7 m2 Standard Measurements: - Patient was not observed to be obese. General Appearance: - Well developed. - Well nourished. - In no acute distress. Neck: Thyroid: - Showed no abnormalities. Lymph Nodes: - Supraclavicular lymph nodes were not enlarged. - Axillary lymph nodes were not enlarged. Breasts: Right Breast: - Nipple was normal. - No abnormal secretion. - No mass was found. - No tenderness. Left Breast: - Nipple was normal. - No abnormal secretion. - No mass was found. - No tenderness. Lungs: - Clear to auscultation. Cardiovascular: Heart Rate And Rhythm: - Normal. Murmurs: - No murmurs were heard. Back: - No right costovertebral angle tenderness. - No left costovertebral angle tenderness. Abdomen: Palpation: - Abdominal non-tender. - No mass was palpated in the abdomen. Liver: - Not enlarged. Spleen: - Not enlarged. Urinary System: Bladder: - Normal. - Not distended. - Not tender. - Did not have a mass. - Incontinence was not demonstrated. Genitalia: External: - Genitalia showed no abnormalities. Pelvic: - No ovarian mass. Vagina: - No vaginal discharge was observed. - No cystocele was observed. - No rectocele was observed. Cervix: - Showed no lesion. - Did not demonstrate pain elicited by motion. Uterus: - Not enlarged. - Not tender. Uterine Adnexae: - Uterine adnexa was not tender. Rectovaginal: - Tissue was normal. Rectal: - Exam: normal. Psychiatric: Appearance: - Grooming was normal. Tests Laboratory-based Chemistry: Fecal Analysis: Fecal occult blood test was negative. Pathology: Cytology: Cervical Pap Smear performed. Assessment - NORMAL FEMALE EXAM [Z01.419 - Encounter for gynecological examination (general) (routine) without abnormal findings] - Screening Malig. Neoplasm Rectum [Z12.12 - Encounter for screening for malignant neoplasm of rectum] Previous Tests - Test: LIQUID BASED PAP W HPV Report Date: 07/08/2021 HPV mRNA E6/E7 Not Detected Normal LIQUID BASED PAP W HPV PAP SMEAR ABNORMAL? NO Past Medical: Tests: Patient recently had a dexa scan Patient reports 2021- unsure of exact date. Pathology: Cytology: Cervical Pap smear 07/01/2021. Therapy - Pap smear not done. - Low fat diet. Counseling/Education - Instructions for patient: Breast Self Exam discussed - Patient Education: Daily calcium and vitamin D - Patient Education: weight bearing exercise Plan StartCited - Encntr screen mammogram for malignant neoplasm of breast Radiology @ other/*MAMMOGRAPHY: SCREENING MAMMOGRAM Instructions: Additional images/ultrasounds if indicated Please send to PCP EndCited StartCited - Encounter for screening for malignant neoplasm of rectum In office procedures/*Clia Waived Labs: *FOBT* Fecal Occult Blood Test Lab: Pap EndCited StartCited - Other Follow-up 2 years/matteo cesare/prn - please get colonoscopy and dexa report from [facility]. Thank you! EndCited - Clinical summary provided to patient Practice Management Preventive medicine established patient checkup adult 65 years and older; Use of tobacco assessment performed. Care Team - MADELINE EVANGELISTA MD Health Reminders - Assess BMI satisfied 10/05/2023. - Assess Screening for Fall Risk satisfied 10/05/2023. - Assess Tobacco Use satisfied 10/05/2023. - Colorectal Cancer Screening satisfied 10/05/2023. - DEXA satisfied 10/05/2023. - Mammogram satisfied 10/05/2023.
--- OUTSIDE RECORDS SUMMARY | 2024-11-07 15:15 | XMS_ITS | Clinical Summary ---
Author Organization [facility] [employer] Address [address] [place] [address] Care Team Providers Care Adjunct Professor Of Law Name Role Phone Unavailable Primary Care Provider Unavailabl e Source Comments [facility] [employer],non-owned Affiliates and Associated Physician Practices is amultiple site organization consisting of ambulatory clinics and hospital sitesin [place], [place], [place] and [place]. This disclosure is being madepursuant to the Care Everywhere program and may not contain all information available regarding this patient. Last updated 18.[employer] Allergies No known active allergies Medications * Be aware that medications may not be up to date on this document. Alwaysverify current medications with the patient. Medication Sig Dispensed Refills Start Date End Date Status levothyroxine (SYNTHROID) 88 MCG tablet Take 88 mcg by mouth daily before breakfast. Active anastrozole (ARIMIDEX) 1 MG tablet Take 1 mg by mouth daily before breakfast. Instructed to take AM of surgery Active hydrocodone-acetamin ophen (NORCO) 7.5-325 MG tablet Take 1 Tab by mouth every 4 hours as needed for Pain. 30 0 04/19/2009 Active hydrocodone-acetamin ophen (NORCO) 7.5-325 MG tablet Take 1 Tab by mouth every 4 hours as needed for Pain. 40 0 04/19/2009 Active warfarin (COUMADIN) 2 MG tablet Take 1 Tab by mouth every evening. 28 0 04/19/2009 Active ferrous sulfate 300 (60 FE) MG tablet Take 1 Tab by mouth 2 times daily with breakfast and dinner. 60 1 04/20/2009 Active docusate sodium (COLACE) 100 MG capsule Take 1 Cap by mouth 2 times daily. 60 0 04/20/2009 Active Active Problems Problem Noted Date Diagnosed Date Fever 04/20/2009 Preoperative examination 03/27/2009 Social History Tobacco Use Types Packs/Day Years Used Date Smoking Tobacco: Never Alcohol Use Standard Drinks/Week Comments No 0 (1 standard drink = 0.6 oz pur e alcohol) social Sex and Gender Information Value Date Recorded Sex Assigned at Not on file Gender Identity Not on file Sexual Orientation Not on file Last Filed Vital Signs Vital Sign Reading Time Taken Comments Blood Pressure 104/64 04/20/2009 2:05 PM CDT Pulse 77 04/20/2009 2:05 PM CDT Temperature 36.7 C (98 F) 04/20/2009 2:05 PM CDT Respiratory Rate 18 04/20/2009 2:05 PM CDT Oxygen Saturation 100% 04/20/2009 2:05 PM CDT Inhaled Oxygen Concentration - - Weight 60.5 kg (133 lb 6.1 oz) 04/18/2009 6:00 A M CDT Height 162.6 cm (5' 4 ) 04/18/2009 6:00 AM CDT Body Mass Index 22.89 04/18/2009 6:00 AM CDT Plan of Treatment Health Maintenance Due Date Last Done Comments BONE DENSITY TESTING 1955 COLOGUARD (AGES 45-75) - COL ON CA SCREENING 1955 COLON MONITORING 1955 COLONOSCOPY - COLON CA SCREENING 1955 CT COLONOGRAPHY - COLON CA SCREENING 1955 Colorectal Cancer Screening 1955 FIT - COLON CA SCREENING 1955 FLEX SIG - COLON CA SCREENING 1955 LIPID TESTING 1955 MAMMOGRAM 1955 HEPATITIS C SCREENING 09/15/1971 DTAP/TDAP/TD VACCINES (1 - Tdap) 1972 PNEUMOCOCCAL VACCINE 50+ (1 of 1 - PCV) 2003 ZOSTER VACCINE (1 of 2) 2003 COVID-19 VACCINE ( - 2023-2 5 season) 2024 INFLUENZA VACCINE (#1) 2024 DEPRESSION SCREENING 08/10/2024 Respiratory Syncytial Virus (RSV) Vaccine Pt: or over 60 yrs (1 - 1-dose 75+ series) 2028 HEPATITIS B VACCINE Aged Out No longe r eligible based on patient's age to complete this topic HIB VACCINE Aged Out No longer eligi ble based on patient's age to complete this topic HPV VACCINE Aged Out No longer eligi ble based on patient's age to complete this topic MENINGOCOCCAL (Group B) VACC INE SHARED DECISION-MAKING Aged Out No longer eligibl e based on patient's age to complete this topic MENINGOCOCCAL GROUPS A/C/Y/W VACCINE Aged Out No longer eligible b ased on patient's age to complete this topic Advance Directives * Full Code (Latest Code Status on File) Date Activated Date Inactivated Comments 04/18/2009 11:16 AM 04/21/2009 2:55 AM
--- OUTSIDE RECORDS SUMMARY | 2024-11-07 15:15 | XMS_ITS ---
Care Plan - [facility] Created on: November 07, 2024 AMY DIAZ : 1955 Sex: Female Author Organization [facility] Address [address] [place] [address] Phone Care Team Providers Care Power Truck Driver Name Role Phone JEAN CARLOS VAZQUEZ, MADELINE M Unavailable [phone] LISA VAZQUEZ, GUANAKITO Edwards Unavailable [phone] COLLETTE VAZQUEZ, JOSE Burr Primary Care Provider [phone]
--- OUTSIDE RECORDS SUMMARY | 2024-11-07 15:15 | XMS_ITS | Clinical Summary ---
Author Organization [facility] Address [address] [place] [address] Phone Care Team Providers Care Getter Operator Name Role Phone JEAN CARLOS VAZQUEZ, MADELINE Marquez Unavailable [phone] LISA VAZQUEZ, GUANAKITO Edwards Unavailable [phone] COLLETTE VAZQUEZ, JOSE Burr Primary Care Provider [phone] Reason for Visit and Chief Complaint gynecologic annual exam - The Chief Complaint is: Annual Problems Includes: Problems addressed during this encounter and other active Problems All Visits Onset Date Resolved Date Provider Condition S tatus HX OF BREAST MALIGNANCY 11/28/2009 MOLLY BECKWITH NP-BC Active Last Documented On 02/14/2015 10:10AM ; [facility] Note: left breast - lumpectomy - ER/WA + - Grade I HYPOTHYROIDISM NOS 11/28/2009 MARTINE PEARSON M.D. Active Last Documented On 0 2:06PM ; [facility] Plan of Treatment - Clinical summary provided to patient - Last Documented On 04/25/2019 10:25AM ; [facility] Per new ASCCP guidelines, pap was deferred today. This was d/w pt. and pt. is agreeable to this plan. - Last Documented On 04/25/2019 10:25AM ; [facility] Pending Tests Order Diagnosis Results Due Ordering P ngozi Radiology @ other - *MAMMOGRAPHY SCREENING MAMMOGRAM Encntr screen mammogram for malignant neoplasm of breast 10/19/23 MOLLY BECKWITH WHNP-BC Last Documented On 4 3:14PM ; [facility] Instructions to patient Instructions for patient : B reast Self Exam discussed Last Documented On 9 10:06AM ; [facility] Colonoscopy Handout given to patient Last Documented On 9 10:07AM ; [facility] Education and Decision Aids were provided during visit for: Patient Education: Daily huong cium and vitamin D Last Documented On 9 10:06AM ; [facility] Patient Education: weight be aring exercise Last Documented On 9 10:06AM ; [facility] Assessments Includes: Assessments from this encounter Findings - NORMAL FEMALE EXAM - Last Documented On 04/25/2019 10:25AM ; [facility] - Screening Malig. Neoplasm Rectum - Last Documented On 04/25/2019 10:25AM ; [facility] Instructions Includes: Instructions from this encounter Instructions to patient Instructions for patient : B reast Self Exam discussed Last Documented On 9 10:06AM ; [facility] Colonoscopy Handout given to patient Last Documented On 9 10:07AM ; [facility] Education and Decision Aids were provided during visit for: Patient Education: Daily huong cium and vitamin D Last Documented On 9 10:06AM ; [facility] Patient Education: weight be aring exercise Last Documented On 9 10:06AM ; [facility] Medical Equipment - Implanted Devices Includes: Current Devices No Medical Equipment Recorded Medications Includes: Medications discussed during this encounter and other current Medications Current Medications (continue as prescribed) Rosuvastatin Calcium 5 MG Oral Tablet 09/22/2023 Pro vider: Diagnosis: Last Documented On 10/05/2023 3:00PM By Catina RICO ; [facility] Synthroid 100 MCG OR TABS 11/26/2009 Provider: Diagnosis: Last Documented On 0 9:57AM By CARLINE BILLINGSLEY MA ; [facility] Medications Administered Includes: Administered Medications from this encounter No Administered Medications Recorded Vital Signs Includes: Vital Signs from this encounter Vital Name 04/25/2019 10:12A Blood Pressure Sitting L 128/72 BP Cuff Size Regular Height (in) 64 Weight (lb) 143 Body Mass Index (kg/m2) 24.5 Body Surface Area (m2) 1.7 Last Documented: On 04/25/2019 10:15A M ; [facility] Results Includes: Results discussed during this encounter THINPREP TIS AND HPV mRNA E6/E7 [employer] Ordered by MOLLY ABDI-SAVANNAH on 03/11 Collected: 04/01/2017 Reported: 04/05/20 17 11:30 Last Documented On 7 7:52AM ; [facility] Reviewed by MOLLY VERMA on 04/06/2017; All test results are final unless otherwise noted. HPV mRNA E6/E7 Not Detected (Not Detected) N (Normal) Last Documented On 7 7:52AM ; [facility] Note: This test was performed using the APTIMA HPV Assay ([employer]This assay detects E6/E7 viral messenger RNA (mRNA) from 14high-risk HPV types (16,18,31,33,35,39,45,51,52,56,58,59,66,68). SOURCE: Cervix, Endocervix N (Normal) Last Documented On 7 7:52AM ; [facility] CLINICAL INFORMATION: Routine exam N (Normal) Last Documented On 7 7:52AM ; [facility] LMP: 2001 N (Normal) Last Documented On 7 7:52AM ; [facility] PREV. PAP: 2015 N (Normal) Last Documented On 7 7:52AM ; [facility] PREV. BX: NONE N (Normal) Last Documented On 7 7:52AM ; [facility] STATEMENT OF ADEQUACY: SATISFACTORY FOR EVALUATION N (Normal) Last Documented On 7 7:52AM ; [facility] INTERPRETATION/RESULT: Negative for intraepithelial lesion or malignancy. Atrophic pattern; predominantly parabasal cells None Last Documented On 7 7:52AM ; [facility] COMMENT: This Pap test has been evaluated with computer assisted technology. N (Normal) Last Documented On 7 7:52AM ; [facility] SALES FLOOR TEAM LEADER: PCM, CT(ASCP) CT screening location: [place] [address] [place] [address] N (Normal) Last Documented On 7 7:52AM ; [facility] History of Present Illness Includes: History of Present Illness from this encounter HPI AMY HERNÁNDEZGINS is a 63 year old female. - Allergy list reviewed - Medication list reviewed - PRIMARY CARE PROVIDER : Dr Carl - Medication reconciliation performed - Menopause has occurred - No vertigo Social History Description Last Updated Able to walk 04/25/2019 Last Documented On 9 10:25AM ; [facility] Alcohol use rarely 04/25/2019 Last Documented On 9 10:25AM ; [facility] Non-smoker 04/25/2019 Last Documented On 9 10:25AM ; [facility] Not using drugs 04/25/2019 Last Documented On 9 10:25AM ; [facility] Social history unchanged 04/25/2019 Last Documented On 9 10:25AM ; [facility] Smoking status : Never smoker 04/25/2019 Last Documented On 9 10:25AM ; [facility] Procedures and Surgical History Includes: Procedures from this encounter Procedures Code Diagnosis Performing Provider Service L ocation Service Date low fat diet Last Documented On 9 10:07AM ; [facility] Preventive Medicine Services (medicare pt) G0101 Last Documented On 9 10:16AM ; [facility] Pap smear not done [address]4618 Last Documented On 9 10:16AM ; [facility] fecal occult blood test was negative [id number] Last Documented On 9 10:06AM ; [facility] Surgical History Last Updated Surgical / procedural history Rt hip rep lacement in 200802/08/2014 Last Documented On 9 10:07AM ; [facility] Breast Biopsy Lt Breast bx 2006 ca 12/30 Last Documented On 9 10:07AM ; [facility] History of tubal ligation 11/28/2009 Last Documented On 9 10:07AM ; [facility] Medical History Includes: Medical History addressed during this encounter Description Last Updated No recent change in medical history 04/10 Last Documented On 9 10:25AM ; [facility] Not sexually active 04/25/2019 Last Documented On 9 10:25AM ; [facility] History of a DXA of the lateral lumbar s pine was performed 05/10/2018 wnl 04/25/2019 Last Documented On 9 10:25AM ; [facility] History of complete colonoscopy 2015 Dr Fitch repeat in 10 years 04/25/2019 Last Documented On 9 10:25AM ; [facility] History of Pap smear done 04/01/201704/10 Last Documented On 9 10:25AM ; [facility] History of screening mammogram was perfo rmed 05/10/2018 04/25/2019 Last Documented On 9 10:25AM ; [facility] Result: normal 04/25/2019 Last Documented On 9 10:25AM ; [facility] Result: normal 04/25/2019 Last Documented On 9 10:25AM ; [facility] History of hypothyroidism 12/30/2012 Last Documented On 9 10:07AM ; [facility] 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 Last Documented On 9 10:07AM ; [facility] History of breast cancer 11/28/2009 Last Documented On 9 10:07AM ; [facility] History of fibrocystic disease of breast 11/28/2009 Last Documented On 9 10:07AM ; [facility] History of thyroid disorder 11/28/2009 Last Documented On 9 10:07AM ; [facility] Para 3 11/28/2009 Last Documented On 9 10:07AM ; [facility] 3 10/22/2009 Last Documented On 9 10:07AM ; [facility] Status post tubal ligation 1980 10/23/19 10 Last Documented On 9 10:07AM ; [facility] Thyroid disease 10/22/2009 Last Documented On 9 10:07AM ; [facility] Family History Includes: Family History addressed during this encounter Description Last Updated Family history unchanged 04/25/2019 Last Documented On 9 10:25AM ; [facility] Maternal history of pure hypercholestero lemia mom 04/25/2019 Last Documented On 9 10:25AM ; [facility] Paternal history of family history of he art disease DAD 04/25/2019 Last Documented On 9 10:25AM ; [facility] Paternal history of hypertension dad Last Documented On 9 10:25AM ; [facility] Family history of malignant female breas t neoplasm maternal 1st cousin 04/22/2018 Last Documented On 9 10:07AM ; [facility] First child named SUSAN 197111/28/2009 Last Documented On 9 10:07AM ; [facility] Second child named OMAR 197411/28/2009 Last Documented On 9 10:07AM ; [facility] Third child named GARRICK 197711/28/2009 Last Documented On 9 10:07AM ; [facility] Family history of Cancer breast-cousin 0 10/22/2009 Last Documented On 9 10:07AM ; [facility] Family medical history of high blood pre ssure (Paunts) 10/22/2009 Last Documented On 9 10:07AM ; [facility] Review of Systems Includes: Review of Systems from this encounter Gastrointestinal: No pelvic pain. Genitourinary: No postmenopausal bleeding. No vaginal discharge. Neurological: No recent falls and no difficulty walking. Mental Status Includes: Mental Status from this encounter No Mental Status Recorded Functional Status Includes: Functional Status from this encounter No Functional Status Recorded Physical Exam Includes: Physical Exam from this encounter Allergies Includes: Active Allergies Substance Type Reaction Onset Date Resolved Date Statu s SEASONAL Allergy 10/05/2023 Active Last Documented On 4 3:00PM ; [facility] Encounters Encounter Provider Location Date Check-In Time Check-Out Time Diagnosis ANNUAL RETAIL EVENT AND SALES ASSISTANT EXAM MOLLY BECKWITH [facility] ANESTHESIOLOGIST 04/25/20 19 10:05AM 10:27AM Screening Malig. Neoplasm Rectum,Normal Female Exam Insurance Includes: Active Insurance Policies Plan Name Member ID Group # Subscriber Relationship Effect yan Dates 1 - MEDICARE PART A CLAIMS/NGS [id number] AMY Solomon EMILY Self 2 - [employer] [id number] PLAN F AMY L EMILY Self Clinical Notes Includes: Clinical Notes from this encounter No Clinical Notes Recorded
--- OUTSIDE RECORDS SUMMARY | 2024-11-07 15:15 | XMS_ITS | Clinical Summary ---
Author Organization [facility] Address [address] [place] [address] Phone Care Team Providers Care Compliance Spec Name Role Phone JEAN CARLOS VAZQUEZ, MADELINE Marquez Unavailable [phone] LISA VAZQUEZ, GUANAKITO Edwards Unavailable [phone] OCLLETTE VAZQUEZ, JOSE Burr Primary Care Provider [phone] Reason for Visit and Chief Complaint REFERRAL Problems Includes: Problems addressed during this encounter and other active Problems All Visits Onset Date Resolved Date Provider Condition S tatus HX OF BREAST MALIGNANCY 11/28/2009 MOLLY BECKWITH NP-BC Active Last Documented On 02/14/2015 10:10AM ; [facility] Note: left breast - lumpectomy - ER/DE + - Grade I HYPOTHYROIDISM NOS 11/28/2009 MARTINE PEARSON M.D. Active Last Documented On 0 2:06PM ; [facility] Plan of Treatment Pending Tests Order Diagnosis Results Due Ordering P roashwinder Radiology @ other - *MAMMOGRAPHY SCREENING MAMMOGRAM Encntr screen mammogram for malignant neoplasm of breast 10/19/23 MOLLY BECKWITH NP-BC Last Documented On 4 3:14PM ; [facility] Assessments Includes: Assessments from this encounter No Assessments Recorded Medical Equipment - Implanted Devices Includes: Current Devices No Medical Equipment Recorded Medications Includes: Medications discussed during this encounter and other current Medications Current Medications (continue as prescribed) Rosuvastatin Calcium 5 MG Oral Tablet 09/22/2023 Pro vider: Diagnosis: Last Documented On 10/05/2023 3:00PM By Catina RICO ; [facility] Synthroid 100 MCG OR TABS 11/26/2009 Provider: Diagnosis: Last Documented On 0 9:57AM By CARLINE BILLINGSLEY MA ; [facility] Medications Administered Includes: Administered Medications from this [...] Active Last Documented On 4 3:00PM ; [facility] Encounters Encounter Provider Location Date Check-In Time Check-Out Time Diagnosis [facility] 8:29AM 11:59PM Insurance Includes: Active Insurance Policies Plan Name Member ID Group # Subscriber Relationship Effect yan Dates 1 - MEDICARE PART A CLAIMS/NGS [id number] AMY Garcia 2 - [employer] [id number] PLAN F AMY Garcia Clinical Notes Includes: Clinical Notes from this encounter No Clinical Notes Recorded
--- OUTSIDE RECORDS SUMMARY | 2024-11-07 15:15 | XMS_ITS | Clinical Summary ---
Author Organization [facility] Address [address] [place] [address] Phone Care Team Providers Care Stem Cleaning Machine Feeder Name Role Phone JEAN CARLOS VAZQUEZ, MADELINE Marquez Unavailable [phone] LISA VAZQUEZ, GUANAKITO Edwards Unavailable [phone] COLLETTE VAZQUEZ, JOSE Burr Primary Care Provider [phone] Reason for Visit and Chief Complaint The Chief Complaint is: WWE, no c/o, no new partners Problems Includes: Problems addressed during this encounter and other active Problems All Visits Onset Date Resolved Date Provider Condition S tatus HX OF BREAST MALIGNANCY 11/28/2009 MOLLY BECKWITH NP-BC Active Last Documented On 02/14/2015 10:10AM ; [facility] Note: left breast - lumpectomy - ER/OK + - Grade I HYPOTHYROIDISM NOS 11/28/2009 MARTINE PEARSON M.D. Active Last Documented On 0 2:06PM ; [facility] Plan of Treatment - Clinical summary provided to patient - Last Documented On 07/01/2021 10:11AM ; [facility] Pending Tests Order Diagnosis Results Due Ordering P ngozi Radiology @ other - *MAMMOGRAPHY SCREENING MAMMOGRAM Encntr screen mammogram for malignant neoplasm of breast 10/19/23 MOLLY BECKWITH WHNP-BC Last Documented On 4 3:14PM ; [facility] Instructions to patient Instructions for patient : B reast Self Exam discussed Last Documented On 1 9:59AM ; [facility] Colonoscopy Handout given to patient Last Documented On 1 10:00AM ; [facility] Education and Decision Aids were provided during visit for: Patient Education: Daily huong cium and vitamin D Last Documented On 1 9:59AM ; [facility] Patient Education: weight be aring exercise Last Documented On 1 9:59AM ; [facility] Assessments Includes: Assessments from this encounter Findings - NORMAL FEMALE EXAM [Z01.419 - Encounter for gynecological examination (general) (routine) without abnormal findings] - Last Documented On 07/01/2021 10:11AM ; [facility] - Screening Malig. Neoplasm Rectum [Z12.12 - Encounter for screening for malignant neoplasm of rectum] - Last Documented On 07/01/2021 10:11AM ; [facility] Instructions Includes: Instructions from this encounter Instructions to patient Instructions for patient : B reast Self Exam discussed Last Documented On 1 9:59AM ; [facility] Colonoscopy Handout given to patient Last Documented On 1 10:00AM ; [facility] Education and Decision Aids were provided during visit for: Patient Education: Daily huong cium and vitamin D Last Documented On 1 9:59AM ; [facility] Patient Education: weight be aring exercise Last Documented On 1 9:59AM ; [facility] Medical Equipment - Implanted Devices Includes: Current Devices No Medical Equipment Recorded Medications Includes: Medications discussed during this encounter and other current Medications Current Medications (continue as prescribed) Rosuvastatin Calcium 5 MG Oral Tablet 09/22/2023 Pro vider: Diagnosis: Last Documented On 10/05/2023 3:00PM By Catina RICO ; [facility] Synthroid 100 MCG OR TABS 11/26/2009 Provider: Diagnosis: Last Documented On 0 9:57AM By CARLINE BILLINGSLEY MA ; [facility] Medications Administered Includes: Administered Medications from this encounter No Administered Medications Recorded Vital Signs Includes: Vital Signs from this encounter Vital Name 07/01/2021 09:55A Blood Pressure Sitting L 124/72 BP Cuff Size Regular Temp-Oral (F) 98.2 Height (in) 64.5 Weight (lb) 146 Body Mass Index (kg/m2) 24.7 Body Surface Area (m2) 1.7 Last Documented: On 07/01/2021 10:02A M ; [facility] Results Includes: Results discussed during this encounter No Results Recorded For Specified Dates History of Present Illness Includes: History of Present Illness from this encounter NATHANIEL DIAZ is a 65 year old female. - Allergy list reviewed - Medication list reviewed - Primary Care Provider: Dr. Meseret Callahan at [facility] Social History Description Last Updated Alcohol use rarely 10/05/2023 Last Documented On 1 9:55AM ; [facility] Tobacco non-user 07/01/2021 Last Documented On 1 10:11AM ; [facility] Able to walk 04/25/2019 Last Documented On 1 9:55AM ; [facility] Non-smoker 04/25/2019 Last Documented On 1 9:55AM ; [facility] Not using drugs 04/25/2019 Last Documented On 9:55AM ; [facility] Social history unchanged 04/25/2019 Last Documented On 1 9:55AM ; [facility] Smoking status : Never smoker 04/25/2019 Last Documented On 1 9:55AM ; [facility] Procedures and Surgical History Includes: Procedures from this encounter Procedures Code Diagnosis Performing Provider Service L ocation Service Date low fat diet Last Documented On 1 10:00AM ; [facility] use of tobacco assessment performed 1000F Last Documented On 1 10:00AM ; [facility] patient screened for future fall risk: documentation of any fall with injury in past year 1100F Last Documented On 1 10:00AM ; [facility] review of medications documented 1160F Last Documented On 1 10:00AM ; [facility] Preventive Medicine Services (medicare pt) G0101 Last Documented On 1 10:00AM ; [facility] history of cervical Pap smear 2017 73485 Last Documented On 10:00AM ; [facility] fecal occult blood test was negative 11330 Last Documented On 9:59AM ; [facility] patient recently had a dexa scan 2017 Last Documented On 10:00AM ; [facility] Cervical Pap Smear performed Q0091 Last Documented On 11/22/202 1 10:00AM ; [facility] Surgical History Last Updated Surgical / procedural history Rt hip rep lacement in 200802/08/2014 Last Documented On 1 9:55AM ; [facility] Breast Biopsy Lt Breast bx 2006 ca 12/30 Last Documented On 1 9:55AM ; [facility] History of tubal ligation 11/28/2009 Last Documented On 1 9:55AM ; [facility] Medical History Includes: Medical History addressed during this encounter Description Last Updated Last mammogram date: 06/04/2021 07/01/20 Last Documented On 1 10:11AM ; [facility] Last pap smear date 201607/01/2021 Last Documented On 1 10:11AM ; [facility] History of colonoscopy fiberoptic was pe rformed 201407/01/2021 Last Documented On 1 10:11AM ; [facility] History of screening mammogram was perfo rmed 06/04/2021 07/01/2021 Last Documented On 1 10:11AM ; [facility] No recent change in medical history 04/10 Last Documented On 1 9:55AM ; [facility] Not sexually active 04/25/2019 Last Documented On 1 9:55AM ; [facility] History of a DXA of the lateral lumbar s pine was performed 05/10/2018 wnl 04/25/2019 Last Documented On 1 9:55AM ; [facility] History of complete colonoscopy 2014 Dr Fitch repeat in 10 years 04/25/2019 Last Documented On 1 9:55AM ; [facility] Result: normal 04/25/2019 Last Documented On 1 9:55AM ; [facility] Result: normal 04/25/2019 Last Documented On 1 9:55AM ; [facility] History of hypothyroidism 12/30/2012 Last Documented On 1 9:55AM ; [facility] 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/2009 Last Documented On 1 9:55AM ; [facility] History of breast cancer 11/28/2009 Last Documented On 1 9:55AM ; [facility] History of breast fibrocystic disease Last Documented On 1 9:55AM ; [facility] History of thyroid disorder 11/28/2009 Last Documented On 1 9:55AM ; [facility] Para 3 11/28/2009 Last Documented On 1 9:55AM ; [facility] 3 10/22/2009 Last Documented On 1 9:55AM ; [facility] Status post tubal ligation 1980 10/23/19 Last Documented On 1 9:55AM ; [facility] Thyroid disease 10/22/2009 Last Documented On 1 9:55AM ; [facility] Family History Includes: Family History addressed during this encounter Description Last Updated Family history unchanged 04/25/2019 Last Documented On 1 9:55AM ; [facility] Maternal history of pure hypercholestero lemia mom 04/25/2019 Last Documented On 1 9:55AM ; [facility] Paternal history of family history of he art disease DAD 04/25/2019 Last Documented On 1 9:55AM ; [facility] Paternal history of hypertension dad Last Documented On 1 9:55AM ; [facility] Family history of malignant female breas t neoplasm maternal 1st cousin 04/22/2018 Last Documented On 1 9:55AM ; [facility] Family history of hypercholesterolemia mom 12/30/2012 Last Documented On 1 9:55AM ; [facility] Family history of hypertension dad 12/30 Last Documented On 1 9:55AM ; [facility] First child named SUSAN 197111/28/2009 Last Documented On 1 9:55AM ; [facility] Heart disease DAD 11/28/2009 Last Documented On 1 9:55AM ; [facility] Second child named OMAR 197411/28/2009 Last Documented On 1 9:55AM ; [facility] Third child named GARRICK 197711/28/2009 Last Documented On 1 9:55AM ; [facility] Family history of Cancer breast-cousin 0 10/22/2009 Last Documented On 1 9:55AM ; [facility] Family medical history of high blood pre ssure (Paunts) 10/22/2009 Last Documented On 1 9:55AM ; [facility] Review of Systems Includes: Review of Systems from this encounter Gastrointestinal: No pelvic pain. Genitourinary: No postmenopausal bleeding. No vaginal discharge. Neurological: No ataxia. Psychological: No fear of falling. Past Medical: No fall in the past 6 months. Mental Status Includes: Mental Status from this encounter No Mental Status Recorded Functional Status Includes: Functional Status from this encounter No Functional Status Recorded Physical Exam Includes: Physical Exam from this encounter Allergies Includes: Active Allergies Substance Type Reaction Onset Date Resolved Date Statu s SEASONAL Allergy 10/05/2023 Active Last Documented On 4 3:00PM ; [facility] Encounters Encounter Provider Location Date Check-In Time Check-Out Time Diagnosis WELL WOMAN - ESTABLISHED PT MOLLY BECKWITH [facility] 07/01/20 21 9:49AM 10:16AM Screening Malig. Neoplasm Rectum,Normal Female Exam Insurance Includes: Active Insurance Policies Plan Name Member ID Group # Subscriber Relationship Effect yan Dates 1 - MEDICARE PART A CLAIMS/NGS [id number] AMY Solomon EMILY Self 2 - [employer] [id number] PLAN F AMY Solomon EMILY Self Clinical Notes Includes: Clinical Notes from this encounter No Clinical Notes Recorded
--- OUTSIDE RECORDS SUMMARY | 2024-11-07 15:15 | XMS_ITS | Continuity of Care Document ---
Author Organization [facility] Address [address] [place] [address] Phone Care Team Providers Care Electronic Science Teacher Name Role Phone Omer Song MD Unavailable Unavailable Procedures Procedure Date Office/outpatient Visit, Est SCODI, Posterior Segment Office/outpatient Visit, Est Visual Field Examination(s) Office Consultation Corneal Pachymetry Fundus Photography W/ Report Advance Directives Directive Yes / No Effective Date File Name No Information Encounters Encounter Description Practice Location Reason(s) For Visit Diagnoses Date Provider Providers Copied on Encounter Office/outpat ient Visit, [facility], [address] [place] [address] [address], [place], [place], [id number], [place] tel:[phone] [facility] [place] [facility] [employer] Professional No Information 1 Duncan Tello. [address] [facility] [facility], [address], [place], [place], [id number], [place]. tel:[phone] Referring Provider: Deion Salas, [address] [facility], [place], [address]. tel:[phone] Office/outpat ient Visit, [facility], [address], [place], [place], [id number], [place] tel:[phone] SEC [facility] Professional No Information 0-201 1 Duncan Tello. [address] [facility] [place], [id number], . tel:[phone] Referring Provider: Deion Salas, [address] [facility] [place], [address]. tel:[phone] Office Consultation [facility], [address], [place], [place], [id number], tel:[phone] SEC [facility] [employer] Professional No Information 0 6-201 0 Duncan Tello. [address] [facility] [place], [place], [id number], . tel:[phone] Referring Provider: Deion Salas, [address] [place], [address]. tel:[phone] Family History Family Member Type Diagnosis Age At Onset No Information Payers Payer name Insurance type Covered constitution party ID Authoriza tion(s) No Information Social History Type Description Quantity Date Captured Comments Sex Female Smoking Status No Information Chief Complaint And Reason For Visit No Information Reason For Referral Reason For Referral No Information History Of Present Illness Encounter Date Complaint History Of Prese nt Illness No Information Functional Status Date Functional Assessmen t No Information Instructions Date Instruction Additional Infor mation No Information Assessments Type Assessment Date No Information Patient Care Teams Name Effective Dates (start - stop) Status Members No Information
== END 2024-11-07 13:51 | disposition home or self-care (01) ==
LOC: ANHIMG 13:54
PROVIDERS: PCP Family Medicine; Visit Provider Nurse Practitioner Women's Health
DX: Z12.31 Encounter for screening mammogram for malignant neoplasm of breast (principal)
CPT/HCPCS: 77063; 77067